=== PATIENT | female | born 1955 | race Caucasian/White ===

== ENCOUNTER 2019-11-28 08:51 | Outpatient (CLI) | payer MEDICARE, SELFPAY ==
--- NOTE | ~2019-11-28 | MM_ITS ---
EXAMINATION: MM screening roberto carlos BI w arun HISTORY: Screening mammogram TECHNIQUE: Craniocaudal and mediolateral oblique 3-D tomosynthesis images were obtained and synthetic 2-D images were generated. CAD analysis was submitted and interpreted. COMPARISON: 11/25/2018, 11/16/2017, 11/13/2016 bilateral digital screening mammogram examinations BREAST PARENCHYMAL COMPOSITION: The breasts are heterogeneously dense, which may obscure small masses . FINDINGS: There is no evidence of suspicious mass, calcification, or architectural distortion to sugg est malignancy in either breast. There has been no suspicious interval change. IMPRESSION: 1. No mammographic evidence of malignancy. 2. Recommend routine screening mammography in one year. BI-RADS Category 1: Negative Reviewed, dictated and finalized at location A.
== END 2019-11-28 08:52 | disposition home or self-care (01) ==
PROVIDERS: PCP Family Medicine; Visit Provider Family Medicine
DX: Z12.31 Encounter for screening mammogram for malignant neoplasm of breast (principal)
CPT/HCPCS: 77063; 77067

== ENCOUNTER → 2020-05-20 10:15 | Outpatient (CLI) | payer MEDICARE, SELFPAY ==
--- NOTE | ~2020-05-20 | US_ITS ---
US retroperitoneal comp 05/20/2020 11:01 Procedure: Realtime transabdominal ultrasound of the kidneys and bladder. Indication: Recurrent UTI with hematuria and proteinuria Comparison: No prior studies for comparison. Findings: Renal echotexture is normal bilaterally without hydronephrosis, contour deforming mass or r enal calculus. The right kidney measures 11 cm and left kidney measures 9 cm. Bladder within normal limits. Impression: 1: Unremarkable renal ultrasound. No stones, masses or hydronephrosis. Reviewed, dictated and finalized at location B. 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 No stones, masses or hydronephrosis.
== END ==
PROVIDERS: PCP Family Medicine; Visit Provider Urology
DX: N39.0 Urinary tract infection, site not specified (principal)
CPT/HCPCS: 76770

== ENCOUNTER → 2020-09-06 01:59 | Outpatient (CLI) | payer MEDICARE, SELFPAY ==
[2020-09-06 17:04] LABS: SARS-CoV-2 RNA PCR Negative
== END ==
PROVIDERS: PCP Family Medicine; Visit Provider Internal Medicine Gastroenterology
DX: Z01.812 Encounter for preprocedural laboratory examination (principal); Z20.822 Contact with and (suspected) exposure to COVID-19
CPT/HCPCS: C9803; U0003; U0005

== ENCOUNTER 2020-09-09 00:10 | Day surgery (SDC) | payer MEDICARE, SELFPAY ==
[2020-08-26 13:46] VITALS: BMI 25.0
[2020-09-09 07:49] VITALS: BP 149/80; PULSE 65; RESP 16; TEMP 36.6; O2SAT 99; BMI 25.9
[2020-09-09] MEDS: LACTATED RINGERS 1,000 ML 150 ML IV CONT (08:03)
--- NOTE | 2020-09-09 08:24 | WPDGICN ---
GI Consult Note Consult date/time: 09/09/20 08:24 HPI: Reason for visit EGD. This very pleasant lady seen in consultation request of the primary physician. Impression: Your very pleasant lady with a history of GERD, duodenal ulcers and esophageal spasm. She is here for endoscopic evaluation to assess for lying erosive esophagitis. She was having breakthrough symptoms. This may be contributing to her chronic cough. Dysphagia. This may be secondary to underlying globus reaction. Will evaluate for underlying ring stricture. Essential tremor. Low bone mass. Rosacea. HLD. recommendation: EGD. History is very pleasant lady has a history of chronic cough. The patient also has a history of reflux disease and esophageal spasm. She has been complaining of increasing reflux despite pantoprazole b.i.d.. She has dysphagia to pills. She feels things get caught in the middle of her throat. She has had a chronic cough. Since placing a wedge in her bed her cough has improved. She is here for endoscopic evaluation to assess for lying erosive esophagitis. Physical examination: General: very pleasant patient in no acute distress. HEENT: Head was normocephalic sclerae is clear mouth without masses neck was supple. Heart: Rate rhythm regular without S3 or S4. Lungs: CTA. Abdomen: Soft with no guarding or rigidity. Bowel sounds were active. Neurologic: Cranial nerves 2 through 12 intact. No focal defects. No clonus. Mild essential tremor Musculoskeletal system: Revealed no joint tenderness or swelling no muscle atrophy. Extremities: Reveal no significant edema. Skin: Warm and dry with normal turgor. Mental status: intact. Patient is alert and oriented. Review of Systems Review of Systems: All systems reviewed & are unremarkable except as noted in HPI and below [facility] Past Medical History Medical History (Updated 06/21/20 @ 11:00 by Monisha Contreras DO) Carcinoma of left lower extremity left leg 03-04-18 Hepatitis C antibody test negative 07/05/16 Hoarseness of voice Mammogram normal 11-13-16 Osteopenia Rosacea Surgical History Surgical History History of esophagogastroduodenoscopy (EGD) 1011 Hx of cardiac catheterization Hx of colonoscopy Hx of ovarian cystectomy Family History Family History Mother Family history of cardiovascular disease Hypertension Cerebrovascular accident Family history of chronic obstructive pulmonary disease Sibling Family history of coronary artery disease Hypertension Acute myocardial infarction Father Family history of elevated blood lipids Family history of lung cancer Family history of Hodgkin's lymphoma Grandparent Family history of kidney disease Family history of malignant neoplasm of breast Other Pancreatic cancer Social History Social History Smoking status: Never smoker Alcohol intake: never Substance use: never Living arrangements: with family Gender identity (if verbalized by the patient): Female Spiritual care concerns: No Meds Home Medications and Allergies Home Medications Medication Instructions Recorded Confirmed Type cholecalciferol (vitamin D3) 50 2,000 unit PO DAILY 02/17/19 09/09/20 History mcg (2,000 unit) tablet cyclosporine 0.05 % eye drops in a 1 drop EACH EYE Q12H 02/17/19 09/09/20 History dropperette calcium carbonate 500 mg calcium 1,200 mg PO DAILY 10/30/19 09/09/20 History (1,250 mg) tablet triamcinolone acetonide 0.1 % 1 applic TOPICAL BID #30 gm 10/30/19 09/09/20 Rx topical cream estradiol 1 g VAGINAL .COMPLEX #42.5 gm 02/19/20 09/09/20 Rx ezetimibe 10 mg-simvastatin 10 mg See Rx Instructions .ROUTE 04/13/20 09/09/20 Rx tablet .COMPLEX #90 tablet famotidine 20 mg tablet 20 mg PO BID tablet 06/07
--- NOTE | 2020-09-09 08:54 | WPDANESEPPF ---
Anes - Initial Pre Proc Eval Procedure: Operation Date: 09/09/20 09:00 Proposed Procedures p Esophagogastroduodenoscopy - Pastor Pittman DO Date/Time: 09/09/20 08:54 Surgeon: Pastor Pittman DO Pre Op Diagnosis: gastro reflux disease Patient Data Age: 65 Gender: F Height: 5 ft 6 in Weight: 72.8 kg Last Vital Signs Temp 97.9 F 09/09/20 07:49 Pulse 65 09/09/20 07:49 Resp 16 09/09/20 07:49 BP 149/80 H 09/09/20 07:49 Pulse Ox 99 09/09/20 07:49 Allergies Allergy/AdvReac Type Severity Reaction Status Date / Time Iodinated Contrast Media Allergy Unknown Skin Verified 09/09/20 07:48 Reaction Sulfa (Sulfonamide Allergy Unknown Nausea Verified 09/09/20 07:48 Antibiotics) cefaclor AdvReac Unknown Nausea Verified 09/09/20 07:48 Cephalosporins AdvReac Unknown nausea Verified 09/09/20 07:48 erythromycin base AdvReac Unknown chemical Verified 09/09/20 07:48 burn from ophthalmic ointment ibuprofen AdvReac Unknown Ulcers Verified 09/09/20 07:48 tobramycin AdvReac Unknown Nausea Verified 09/09/20 07:48 ERYTHROMYCIN EYE DROPS Allergy Mild Other Uncoded 09/09/20 07:48 Contrast Media Allergy Unknown SWELLING Uncoded 09/09/20 07:48 OF THROAT Home Medications Medication Instructions Recorded Confirmed Type cholecalciferol (vitamin D3) 50 2,000 unit PO DAILY 02/17/19 09/09/20 History mcg (2,000 unit) tablet cyclosporine 0.05 % eye drops in a 1 drop EACH EYE Q12H 02/17/19 09/09/20 History dropperette calcium carbonate 500 mg calcium 1,200 mg PO DAILY 10/30/19 09/09/20 History (1,250 mg) tablet triamcinolone acetonide 0.1 % 1 applic TOPICAL BID #30 gm 10/30/19 09/09/20 Rx topical cream estradiol 1 g VAGINAL .COMPLEX #42.5 gm 02/19/20 09/09/20 Rx ezetimibe 10 mg-simvastatin 10 mg See Rx Instructions .ROUTE 04/13/20 09/09/20 Rx tablet .COMPLEX #90 tablet famotidine 20 mg tablet 20 mg PO BID tablet 06/21/20 09/09/20 History pantoprazole 40 mg tablet,delayed 40 mg PO BID 06/21/20 09/09/20 History release propranolol 10 mg tablet 10 mg PO .COMPLEX #180 tablet 07/05/20 09/09/20 Rx valacyclovir 2,000 mg PO Q12H PRN 08/26/20 09/09/20 History Patient hx anesthesia problems: none Family hx anesthesia problems: none PMFSH Past Medical History Medical History (Updated 06/21/20 @ 11:00 by Monisha Contreras DO) Carcinoma of left lower extremity left leg 03-04-18 Hepatitis C antibody test negative 07/05/16 Hoarseness of voice Mammogram normal 11-13-16 Osteopenia Rosacea Surgical History Surgical History History of esophagogastroduodenoscopy (EGD) 01-10-11 Hx of cardiac catheterization Hx of colonoscopy Hx of ovarian cystectomy Family History Family History Mother Family history of cardiovascular disease Hypertension Cerebrovascular accident Family history of chronic obstructive pulmonary disease Sibling Family history of coronary artery disease Hypertension Acute myocardial infarction Father Family history of elevated blood lipids Family history of lung cancer Family history of Hodgkin's lymphoma Grandparent Family history of kidney disease Family history of malignant neoplasm of breast Other Pancreatic cancer Social History Social History Smoking status: Never smoker Alcohol intake: never Substance use: never Living arrangements: with family Gender identity (if verbalized by the patient): Female Spiritual care concerns: No Anes - Eval Final PreProcedure Day of Procedure 09/09/20 08:54 Patient weight: normal Heart: regular rate and rhythm Lungs: clear to auscultation Airway: Mallampati scale class II Neurological: alert and oriented ASA classification: II Emergent: no Anesthetic plan: proceed Anesthesia type and monitoring: general GIVS a
[2020-09-09 09:21] VITALS: BP 118/68; PULSE 73; RESP 18; O2SAT 98
[2020-09-09 09:31] VITALS: BP 123/73; PULSE 72; RESP 21; O2SAT 100
[2020-09-09 09:41] VITALS: BP 136/86; PULSE 67; RESP 19; O2SAT 99
== END 2020-09-09 09:45 | disposition home or self-care (01) ==
PROVIDERS: PCP Family Medicine; Visit Provider Internal Medicine Gastroenterology
PROC: 0DJ08ZZ Inspection of Upper Intestinal Tract, Via Natural or Artificial Opening Endoscopic (ICD-10-PCS; CPT 43235; principal; 2020-09-09 09:00)
DX: K21.9 Gastro-esophageal reflux disease without esophagitis (principal); K44.9 Diaphragmatic hernia without obstruction or gangrene; K31.7 Polyp of stomach and duodenum; R05 Cough; R13.10 Dysphagia, unspecified; Z87.11 Personal history of peptic ulcer disease; E78.5 Hyperlipidemia, unspecified; G25.0 Essential tremor; M85.80 Other specified disorders of bone density and structure, unspecified site
CPT/HCPCS: 43239; 43450; 87081; 88305; C9803; J2704; J7120; U0003; U0005

== ENCOUNTER → 2020-10-15 08:41 | Outpatient (CLI) | payer MEDICARE, SELFPAY ==
--- NOTE | ~2020-10-15 | XR_ITS ---
XR wrist RT w scaphoid DATE: 10/15/2020 09:09 INDICATION: Right wrist pain TECHNIQUE: 5 views COMPARISON: None FINDINGS: There is prominent osteoarthritic change including joint space narrowing and spurring at th e first carpometacarpal joint. No fracture or dislocation, periosteal reaction or bone destruction. IMPRESSION: Prominent osteoarthritis at the first carpometacarpal joint Reviewed, dictated and finalized at location A.
== END ==
PROVIDERS: PCP Family Medicine; Visit Provider Family Medicine
DX: M19.031 Primary osteoarthritis, right wrist (principal)
CPT/HCPCS: 73110

== ENCOUNTER 2020-11-29 08:20 | Outpatient (CLI) | payer MEDICARE, SELFPAY ==
--- NOTE | ~2020-11-29 | MM_ITS ---
EXAMINATION: MM screening [facility] BI w arun HISTORY: Screening mammogram TECHNIQUE: Craniocaudal and mediolateral oblique 3-D tomosynthesis images were obtained and synthetic 2-D images were generated. CAD analysis was submitted and interpreted. COMPARISON: 11/28/2019, 11/25/2018 H 1018 BREAST PARENCHYMAL COMPOSITION: The breasts are heterogeneously dense, which may obscure small masses . FINDINGS: There is no evidence of suspicious mass, calcification, or architectural distortion to sugg est malignancy in either breast. There has been no suspicious interval change. IMPRESSION: 1. No mammographic evidence of malignancy. 2. Recommend routine screening mammography in one year. BI-RADS Category 1: Negative Reviewed, dictated and finalized at location A.
== END 2020-11-29 08:21 | disposition home or self-care (01) ==
LOC: ANHIMG 08:22
PROVIDERS: PCP Family Medicine; Visit Provider Family Medicine
DX: Z12.31 Encounter for screening mammogram for malignant neoplasm of breast (principal)
CPT/HCPCS: 77063; 77067

== ENCOUNTER → 2021-06-24 14:27 | Outpatient (CLI) | payer MEDICARE, SELFPAY ==
--- NOTE | ~2021-06-24 | XR_ITS ---
XR shoulder LT min 2V, XR humerus LT 06/24/2021 15:45 Indication: Left shoulder and arm pain Procedure: 4 views left shoulder and 2 views left humerus Comparison: No prior studies for comparison. Findings: There is anatomic alignment. No fracture, subluxation or dislocation. No significant soft t issue abnormality. No foreign bodies. Impression: 1: No acute bone or joint abnormality. Reviewed, dictated and finalized at location B. Impression: 1: No acute bone or joint abnormality. Impression: 1: No acute bone or joint abnormality.
== END ==
PROVIDERS: PCP Family Medicine; Visit Provider Family Medicine
DX: M79.602 Pain in left arm (principal); M25.619 Stiffness of unspecified shoulder, not elsewhere classified
CPT/HCPCS: 73030; 73060

== ENCOUNTER → 2021-07-13 10:13 | Outpatient (CLI) | payer MEDICARE, SELFPAY ==
--- NOTE | ~2021-07-13 | XR_ITS ---
EXAMINATION: XR chest 2V DATE: 07/13/2021 10:39 INDICATION: Cough TECHNIQUE: PA and lateral views of the chest were obtained. COMPARISON: Chest radiograph dated 09/12/2016 FINDINGS: The lungs remain clear with no focal airspace opacities, pulmonary edema, pleural effusion or pneumot horax. The cardiomediastinal silhouette is normal. Mild thoracic dextrocurvature with mild spondylosi s. IMPRESSION: 1. No acute cardiopulmonary disease. Reviewed, dictated and finalized at location B.
== END ==
PROVIDERS: PCP Family Medicine; Visit Provider Family Medicine
DX: R05.9 Cough, unspecified (principal); M47.814 Spondylosis without myelopathy or radiculopathy, thoracic region
CPT/HCPCS: 71046

== ENCOUNTER 2021-08-09 17:14 | Outpatient (CLI) | payer MEDICARE, SELFPAY ==
--- NOTE | ~2021-08-09 | DEXA_ITS ---
Bone Density Report Name: UZIEL AN Age: 66 Sex: Female Ethnicity: White Date of : 1955 Indication: osteopenia; height loss; prior fracture;post menopausal Referring Provider: KELSI HALEY Study: Bone densitometry was performed. Exam Date: August 09, 2021 Accession number: [id number] Bone Density: Region BMD T-score Z-score Classification AP Spine(L1-L4) 0.802 -2.2 -0.2 Osteopenia Femoral Neck (Left) 0.634 -1.9 -0.2 Osteopenia Total Hip (Left) 0.768 -1.4 0.0 Osteopenia Femoral Neck (Right) 0.656 -1.7 0.0 Osteopenia Total Hip (Right) 0.784 -1.3 0.1 Osteopenia Total Hip Mean 0.776 -1.4 0.1 Osteopenia World Health Organization criteria for BMD impression classify patients as: Normal (T-score at or above -1.0), Osteopenia (T-score between -1.0 and -2.5), or Osteoporosis (T-score at or below -2.5). 10-year Fracture Risk(1): Major Osteoporotic Fracture 18% Hip Fracture 3.0% Reported Risk Factors: [place] (), Neck BMD=0.634, BMI=26.6, previous fracture (1) FRAX(R) Version 3.08. Fracture probability calculated for an untreated patient. Fracture probability may be lower if the patient has received treatment. Previous Exams: Region Exam Age BMD T-score BMD Change BMD Change Date g/cm2 vs Baseline vs Previous AP Spine (L1-L4) 08/09/2021 66 0.802 -2.2 0.003 (0.4%) 0.015 (1.9%) 11/16/2017 62 0.787 -2.4 -0.012 (-1.5%) -0.012 (-1.5%) 11/05/2014 59 0.799 -2.3 Total Hip(Left) 08/09/2021 66 0.768 -1.4 -0.011 (-1.4%) 0.014 (1.8%) 11/16/2017 62 0.755 -1.5 -0.025 (-3.2%) -0.025 (-3.2%) 11/05/2014 59 0.779 -1.3 Total Hip(Right) 08/09/2021 66 0.784 -1.3 0.020 (2.7%) 0.052 (7.1%)* 11/16/2017 62 0.732 -1.7 -0.031 (-4.1%) -0.031 (-4.1%) 11/05/2014 59 0.763 -1.5 *Denotes significance at 95% confidence level, LSC for AP Spine = 0.022 g/cm2, LSC for Total Hip = 0.027 g/cm2 Clinical Information Provided by Patient: Has had a low trauma fracture Patient maximum height was 66 Menopause Age: 47 No regular weight bearing exercise Drinks caffeinated beverages Onset of menses at age 9 Number of children 0 Impression: The patient has low bone mass, based on the Total Spine T-score. The patient has an estimated ten-year risk of hip fracture of 3% and an estimated ten-year risk of major fracture of 18%, based on the WHO FRAX algorithm. The patient has risk factors, incl
== END 2021-08-09 17:15 | disposition home or self-care (01) ==
PROVIDERS: PCP Family Medicine; Visit Provider Physician Assistant
DX: Z78.0 Asymptomatic menopausal state (principal); M85.88 Other specified disorders of bone density and structure, other site; M85.851 Other specified disorders of bone density and structure, right thigh; M85.852 Other specified disorders of bone density and structure, left thigh
CPT/HCPCS: 77080

== ENCOUNTER → 2021-10-27 08:07 | Outpatient (CLI) | payer MEDICARE, SELFPAY ==
--- NOTE | ~2021-10-27 | US_ITS ---
US abdomen complete DATE: 10/27/2021 08:47 INDICATION: Left upper quadrant pain TECHNIQUE: Real time imaging of the complete abdomen, doppler analysis COMPARISON: None FINDINGS: Pancreatic visualization is limited due to bowel interference. No evidence of gallstones. Negative sonographic Young's sign. The common bile duct measures 4 mm, normal. No hepatic space occupying mass lesion. Normal hepatopedal portal venous flow direction. No renal mass lesion or hydronephrosis. No splenomegaly. IMPRESSION: No significant abnormality ; limited pancreatic visualization due to bowel Reviewed, dictated and finalized at Location A. Reviewed, dictated and finalized at location B. IMPRESSION: No significant abnormality ; limited pancreatic visualization due t o bowel
== END ==
LOC: EXPGOSH 08:09 → EXPGOSHRAD 11-04 14:40
PROVIDERS: PCP Internal Medicine Gastroenterology; Visit Provider Internal Medicine Gastroenterology
DX: R07.89 Other chest pain (principal); K44.9 Diaphragmatic hernia without obstruction or gangrene
CPT/HCPCS: 76700

== ENCOUNTER 2021-12-01 11:08 | Outpatient (CLI) | payer MEDICARE, SELFPAY ==
--- NOTE | ~2021-12-01 | MM_ITS ---
EXAMINATION: MM screening roberto carlos BI w arun HISTORY: Screening TECHNIQUE: Craniocaudal and mediolateral oblique 3-D tomosynthesis images were obtained and synthetic 2-D images were generated. CAD analysis was submitted and interpreted. COMPARISON: Comparison to multiple prior studies sequentially, with oldest reviewed study dated 10/2016. BREAST PARENCHYMAL COMPOSITION: The breasts are heterogeneously dense, which may obscure small masses FINDINGS: There is no evidence of suspicious mass, calcification, or architectural distortion to sugg est malignancy in either breast. There has been no suspicious interval change. IMPRESSION: 1. No mammographic evidence of malignancy. 2. Recommend routine screening mammography in one year. BI-RADS Category 1: Negative Reviewed, dictated and finalized at location A.
== END 2021-12-01 11:09 | disposition home or self-care (01) ==
PROVIDERS: PCP Family Medicine; Visit Provider Family Medicine
DX: Z12.31 Encounter for screening mammogram for malignant neoplasm of breast (principal)
CPT/HCPCS: 77063; 77067

== ENCOUNTER → 2021-12-14 07:39 | Outpatient (CLI) | payer MEDICARE, SELFPAY ==
--- NOTE | ~2021-12-14 | MR_ITS ---
EXAMINATION: MR humerus LT wo con DATE: 12/14/2021 08:23 INDICATION: Left arm pain and limited range of motion TECHNIQUE: Magnetic resonance imaging (MRI) of the left upper arm/humerus was performed without intra venous contrast. A marker was placed over the region of maximal pain. Sequences included axial, sagi ttal and coronal T1-weighted FSE and fluid sensitive FSE STIR. COMPARISON: None. FINDINGS: Bone alignment is normal with normal marrow signal throughout. No reactive edema, fracture or patholo gic marrow replacing process. Minimal acromioclavicular osteoarthritis. Glenohumeral and elbow joints appear normal with physiologic amount of fluid. No muscle atrophy or abnormal muscle signal at the l eft upper arm or visualized shoulder girdle. The marker indicating the site of maximal pain is locate d over the distal humeral insertion of the deltoid which appears normal. No abnormal masses or fluid collections identified. No pathologically enlarged left axillary lymphadenopathy. Mild increased flui d signal posterior to the olecranon and distal triceps tendon consistent with mild olecranon bursitis . IMPRESSION: 1. Mild left olecranon bursitis. Otherwise unremarkable MRI of the left shoulder with no etiology nam ntified for pain centered at the lateral aspect of the mid upper arm. Reviewed, dictated and finalized at location A. IMPRESSION: 1. Mild left olecranon bursitis. Otherwise unremarkable MRI of the left shoulde r with no etiology identified for pain centered at the lateral aspect of the mi d upper arm.
--- NOTE | ~2021-12-14 | CT_ITS ---
EXAMINATION: CT chest abdomen wo con DATE: 12/14/2021 08:37 INDICATION: Left chest pain. Left upper quadrant abdominal pain. TECHNIQUE: Computed tomography (CT) of the chest and abdomen was performed without intravenous contra st. Automated exposure control and iterative reconstruction technique were employed. The dose-length product was 486.83 mGy-cm. COMPARISON: None FINDINGS: CHEST CT: There is mild scarring at the lung apices. There is mild atelectasis bilaterally. There is a 3 mm nod ule in left lower lobe, likely benign. No pleural effusion. The heart size is normal. There are coron juan miguel artery calcifications. No pericardial effusion. There is a small sliding hiatal hernia. There is moderate thoracic spondylosis. ABDOMEN CT: There is a 5 mm cyst in the liver. The gallbladder, spleen, pancreas, adrenal glands, and kidneys are normal. There is no urolithiasis. There are no dilated loops of bowel. There are no pathologically e nlarged lymph nodes. There is no free intraperitoneal fluid. There is moderate lumbar spondylosis. IMPRESSION: 1. Small sliding hiatal hernia. Reviewed, dictated and finalized at location A.
== END ==
PROVIDERS: PCP Family Medicine; Visit Provider Family Medicine
DX: R10.9 Unspecified abdominal pain (principal); K44.9 Diaphragmatic hernia without obstruction or gangrene; M70.22 Olecranon bursitis, left elbow; R07.89 Other chest pain; M47.814 Spondylosis without myelopathy or radiculopathy, thoracic region; I25.10 Atherosclerotic heart disease of native coronary artery without angina pectoris
CPT/HCPCS: 71250; 73218; 74150

== ENCOUNTER 2022-05-16 00:28 | Day surgery (SDC) | payer MEDICARE, SELFPAY ==
[2022-05-02 13:54] VITALS: BMI 25.9
[2022-05-16 08:15] VITALS: BP 134/64; PULSE 59; RESP 16; TEMP 36.1; O2SAT 99; BMI 26.4
[2022-05-16] MEDS: LACTATED RINGERS 1,000 ML 150 ML IV CONT (08:26)
--- NOTE | 2022-05-16 08:32 | WPDANESEPPF ---
Anes - Initial Pre Proc Eval Procedure: Operation Date: 05/16/22 09:30 Proposed Procedures p Esophagogastroduodenoscopy - Willy Rolon MD Date/Time: 05/16/22 08:32 Surgeon: Willy Rolon MD Pre Op Diagnosis: GERD, epigastric pain Patient Data Age: 67 Gender: F Height: 1.68 m Weight: 74.1 kg Last Vital Signs Temp 96.9 F L 05/16/22 08:15 Pulse 59 L 05/16/22 08:15 Resp 16 05/16/22 08:15 BP 134/64 05/16/22 08:15 Pulse Ox 99 05/16/22 08:15 O2 Del Method Room Air 05/16/22 08:15 Allergies Allergy/AdvReac Type Severity Reaction Status Date / Time Iodinated Contrast Media Allergy Unknown Skin Verified 05/16/22 08:14 Reaction Sulfa (Sulfonamide Allergy Unknown Nausea Verified 05/16/22 08:14 Antibiotics) cefaclor AdvReac Unknown Nausea Verified 05/16/22 08:14 Cephalosporins AdvReac Unknown nausea Verified 05/16/22 08:14 erythromycin base AdvReac Unknown chemical Verified 05/16/22 08:14 burn from ophthalmic ointment ibuprofen AdvReac Unknown Ulcers Verified 05/16/22 08:14 tobramycin AdvReac Unknown Nausea Verified 05/16/22 08:14 ERYTHROMYCIN EYE DROPS Allergy Mild Other Uncoded 05/16/22 08:14 Contrast Media Allergy Unknown SWELLING Uncoded 05/16/22 08:14 OF THROAT Home Medications Medication Instructions Recorded Confirmed Type cholecalciferol (vitamin D3) 50 2,000 unit PO DAILY 02/17/19 05/16/22 History mcg (2,000 unit) tablet calcium carbonate 500 mg calcium 1,200 mg PO DAILY 10/30/19 05/16/22 History (1,250 mg) tablet (Calcium 500) estradiol 0.01% (0.1 mg/gram) See Rx Instructions .Route 12/23/21 05/16/22 Rx vaginal cream .COMPLEX #42.5 grams famotidine 20 mg tablet 20 mg PO BID #180 tabs 01/17/22 05/16/22 Rx losartan 25 mg tablet 25 mg PO DAILY #90 tabs 02/08/22 05/16/22 Rx propranolol 10 mg tablet 10 mg PO .COMPLEX #270 tabs 04/06/22 05/16/22 Rx pantoprazole 40 mg tablet,delayed 40 mg PO BID #180 tabs 04/07/22 05/16/22 Rx release cyclosporine 0.05 % eye drops in a 1 drp EACH EYE Q12H 05/02/22 05/16/22 History dropperette (Restasis) ezetimibe 10 mg-simvastatin 10 mg 1 tablet PO QHS 05/02/22 05/16/22 History tablet (Vytorin) pimecrolimus 1 % topical cream 1 applic topical TID 05/02/22 05/16/22 History (Elidel) triamcinolone acetonide 0.025 % 1 applic topical BID PRN Rash 05/02/22 05/16/22 History topical cream valacyclovir 1 gram tablet 2,000 mg PO Q12H PRN Outbreak #4 05/10/22 05/16/22 Rx tabs Patient hx anesthesia problems: none Family hx anesthesia problems: none Results Review: All pre-operative results and documents have been reviewed as part of the pre-operative evaluation. [facility] Past Medical History Medical History Carcinoma of left lower extremity left leg 03-04-18 Gastro-esophageal reflux disease without esophagitis Hepatitis C antibody test negative 07/05/16 History of duodenal ulcer Hoarseness of voice Hypertension Mammogram normal 11-13-16 Non-cardiac chest pain Osteopenia Rosacea Surgical History Surgical History History of esophagogastroduodenoscopy (EGD) 01-10-11 History of tonsillectomy Hx of cardiac catheterization Hx of colonoscopy Hx of ovarian cystectomy Family History Family History Mother Family history of cardiovascular disease Hypertension Cerebrovascular accident Family history of chronic obstructive pulmonary disease Sibling Family history of coronary artery disease Hypertension Acute myocardial infarction Father Family history of elevated blood lipids Family history of lung cancer Family history of Hodgkin's lymphoma Grandparent Family history of kidney disease Family history of malignant neoplasm of breast Other Pancreatic cancer Social History Social Histor
--- NOTE | 2022-05-16 09:04 | PM.HPGS ---
History of Present Illness History of Present Illness Consent: Risks, benefits, and alternatives have been discussed and questions answered. Patient agrees to proceed with procedure. Chief complaint: GERD, epigastric pain Narrative: Zeny Roth is a 67 year old female with more recent gerd despite pantoprazole and famotidine, also intermittent non-cardiac chest pain since 2019 (had unremarkable cardiac evaluation), then EGD by Dr Pittman 2020, only small hiatal hernia with small gastric polyps. Review of Systems Constitutional: Constitutional: Denies headache(s) and Denies weakness Eyes: Eyes: Denies blurry vision ENT: Reports Normal hearing present, Denies headache(s) and Denies neck pain Cardiovascular: Cardiovascular: Denies chest pain and Denies dyspnea Respiratory: Respiratory: Denies dyspnea Gastrointestinal: Gastrointestinal: Reports no additional gastrointestinal complaints Genitourinary: Genitourinary: Denies dysuria Musculoskeletal: Musculoskeletal: Denies neck pain Integumentary/Breasts: Skin/Breast: Denies dry skin Neurologic: Reports Normal hearing present, Denies headache(s) and Denies weakness Psychiatric: Psychiatric: Denies anxiety Endocrine: Endocrine: Denies change in body appearance Hematologic/Lymphatic: Hematologic/Lymphatic: Denies easy bleeding Allergic/Immunologic: Allergic/Immunologic: Denies urticaria PMFSH Past Medical History Medical History Carcinoma of left lower extremity left leg 03-04-18 Gastro-esophageal reflux disease without esophagitis Hepatitis C antibody test negative 07/05/16 History of duodenal ulcer Hoarseness of voice Hypertension Mammogram normal 11-13-16 Non-cardiac chest pain Osteopenia Rosacea Surgical History Surgical History History of esophagogastroduodenoscopy (EGD) 01-10-11 History of tonsillectomy Hx of cardiac catheterization Hx of colonoscopy Hx of ovarian cystectomy Family History Family History Mother Family history of cardiovascular disease Hypertension Cerebrovascular accident Family history of chronic obstructive pulmonary disease Sibling Family history of coronary artery disease Hypertension Acute myocardial infarction Father Family history of elevated blood lipids Family history of lung cancer Family history of Hodgkin's lymphoma Grandparent Family history of kidney disease Family history of malignant neoplasm of breast Other Pancreatic cancer Social History Social History Smoking status: Never smoker Second hand tobacco smoke exposure: No Alcohol intake: never Substance use: never Substance use type: does not use Lack of Transportation: No Lack of Food: Never True Current Housing: I Have Housing Concerned About Future Housing: No Difficulty Paying Gas/Electric Bills: No Difficulty Paying for Meds: No Currently Unemployed: No Education: High School Diploma/GED Difficulty w/ Childcare or Family Care: No Living arrangements: with family Additional living arrangements comments: Occupation/Education: retired Gender identity (if verbalized by the patient): Female Spiritual care concerns: No Meds Home Medications and Allergies Home Medications Medication Instructions Recorded Confirmed Type cholecalciferol (vitamin D3) 50 2,000 unit PO DAILY 02/17/19 05/16/22 History mcg (2,000 unit) tablet calcium carbonate 500 mg calcium 1,200 mg PO DAILY 10/30/19 05/16/22 History (1,250 mg) tablet (Calcium 500) estradiol 0.01% (0.1 mg/gram) See Rx Instructions .Route 12/23/21 05/16/22 Rx vaginal cream .COMPLEX #42.5 grams famotidine 20 mg tablet 20 mg PO BID #180 tabs 01/17/22 05/16/22 Rx losartan 25 mg tablet 25 mg PO DAILY #90 tabs 11/
[2022-05-16 09:12] VITALS: BP 106/54; PULSE 67; RESP 22; O2SAT 100
[2022-05-16 09:22] VITALS: BP 105/56; PULSE 63; RESP 12; O2SAT 98
[2022-05-16 09:32] VITALS: BP 129/67; PULSE 55; RESP 15; O2SAT 100
== END 2022-05-16 09:42 | disposition home or self-care (01) ==
PROVIDERS: PCP Family Medicine; Referring Provider Surgery; Visit Provider Internal Medicine Gastroenterology
PROC: 0DJ08ZZ Inspection of Upper Intestinal Tract, Via Natural or Artificial Opening Endoscopic (ICD-10-PCS; CPT 43235; principal; 2022-05-16 09:30)
DX: K21.9 Gastro-esophageal reflux disease without esophagitis (principal); K44.9 Diaphragmatic hernia without obstruction or gangrene; K31.7 Polyp of stomach and duodenum; I10 Essential (primary) hypertension
CPT/HCPCS: 43239; 88305; J2704; J7120

== ENCOUNTER 2022-05-22 09:00 | Outpatient (RCR) | payer MEDICARE, SELFPAY ==
--- NOTE | 2022-04-20 13:52 | PTOPEVAL1 ---
Assessment and note entered by Jannie Murillo, PT, DPT Evaluation Information Assessment Status Evaluation Diagnosis abnormalities of gait and balance Subjective Information Pt states her balance is really bad. She states she has had 3 really bad falls in last of these in 2020. She states she looses her balance and has to catch herself with furniture or the wall to regain her balance. She reports having tremors but is on medication for this. She reports a history of chronic arthritis. She states she walks 2 miles at the [facility] once a week. Reported Pain Level Pain Score 0: Self Report Assessment PT Clinical Summary Zeny presents to therapy today for her initial evaluation with a diagnosis of gait and mobility abnormalities. Today she demonstrates a DGI of 21/ 24 and a SAMUELS of 55/56 as well as a great gait speed. She has BLE strength that is grossly 4-/5. She also reports low activity levels daily. Skilled physical therapy services are indicated to improve strength, to improve higher level balance skills, to encourage regular activity, and to promote unlimited functional mobility. Plan of Care Interventions Gait Training,Neuro Re-education,Patient/Caregiver Educati,Therapeutic Activities,Therapeutic Exercise PT Services Indicated Yes Treatment Frequency and 1x/wk for 5 wks Duration These treatments will address the objective and functional deficits as defined above. The patient will be advanced safely and appropriately in order for the patient to progress towards his/her prior level of function. Additional exercises will be introduced and as well as a comprehensive home exercise program upon discharge, if needed, ?to ensure carryover of functional gains achieved in the clinic. This treatment plan has been reviewed and agreement upon by the patient.
--- NOTE | 2022-05-03 07:54 | PCPTNOTE ---
Patient called to cancel this date due to weather.
--- NOTE | 2022-05-22 09:47 | PTOPDC ---
Assessment and note entered by Jannie Murillo, PT, DPT Evaluation Information Assessment Status Discharge Diagnosis abnormalities of gait and balance Subjective Information Pt states she is doing the exercises consistently but feels like her balance nor mobility has improved. Reported Pain Level Pain Score 0: Self Report Assessment PT Clinical Summary Zeny Luo presents to therapy today for her progress report following 5 visits of skilled therapy to treat her gait abnormalities. Today she demonstrates minor strength improvements with resistance testing, ambulates at a good gait speed , and continues to score high on the SAMUELS and DGI balance assessments. Pt has been instructed in a HEP and reports good compliance with this. She no longer requires skilled therapy services and will be discharged at this time. Plan of Care PT Services Indicated No Treatment Frequency and to be discharged Duration
== END 2022-05-22 13:47 | disposition home or self-care (01) ==
LOC: ANHGOSHPT 09:00
PROVIDERS: PCP Family Medicine; Visit Provider Nurse Practitioner
DX: R26.89 Other abnormalities of gait and mobility (principal)
CPT/HCPCS: 97110; 97112; 97161; 97530

== ENCOUNTER → 2022-06-06 07:05 | Outpatient (CLI) | payer MEDICARE, SELFPAY ==
--- NOTE | ~2022-06-06 | XR_ITS ---
EXAMINATION: XR sacrum coccyx min 2V DATE: 06/06/2022 07:46 INDICATION: Sacrococcygeal disorders, not elsewhere classified. Pain for 4 months. TECHNIQUE: 3 views of the sacrum and coccyx were obtained. COMPARISON: CT 12/14/2021 FINDINGS: There is lumbar levocurvature and mild spondylosis. There is a possible nondisplaced transv erse fracture of the inferior sacrum. There is mild osteoarthritis of the sacroiliac joints. IMPRESSION: 1. Possible nondisplaced transverse fracture of the inferior sacrum. Reviewed, dictated and finalized at location A. ET CUTTER
--- NOTE | ~2022-06-06 | XR_ITS ---
XR lumbar spine min 4V 06/06/2022 07:46 Indication: Low back pain Procedure: 5 views lumbar spine Comparison: 05/27/2012 Findings: There is disc narrowing at L2-3 through L4-5. There is facet hypertrophy at L4-5 and L5-S1. No fracture, subluxation or spondylolisthesis. Normal lumbar lordosis. Mild levoscoliosis centered a t L2. Impression: 1: Mild lumbar spondylosis. Reviewed, dictated and finalized at location D. [employer] Impression: 1: Mild lumbar spondylosis.
== END ==
PROVIDERS: PCP Family Medicine; Visit Provider Family Medicine
DX: M54.50 Low back pain, unspecified (principal); M47.816 Spondylosis without myelopathy or radiculopathy, lumbar region; R93.7 Abnormal findings on diagnostic imaging of other parts of musculoskeletal system; M53.3 Sacrococcygeal disorders, not elsewhere classified
CPT/HCPCS: 72110; 72220

== ENCOUNTER → 2022-07-19 13:08 | Outpatient (CLI) | payer MEDICARE, SELFPAY ==
--- NOTE | ~2022-07-19 | MR_ITS ---
EXAMINATION: MR sacrum wo con DATE: 07/19/2022 13:54 INDICATION: Sacral pain. TECHNIQUE: Magnetic resonance imaging (MRI) of the sacrum was performed without intravenous contrast. COMPARISON: Lumbar spine radiographs 06/06/2022, abdomen CT 12/14/2021 FINDINGS: There is lumbar levocurvature and mild spondylosis. There are Tarlov cysts in the sacrum. No fracture . There is mild osteoarthritis of the sacroiliac joints. IMPRESSION: 1. No fracture. 2. Mild osteoarthritis of the sacroiliac joints. No evidence of inflammatory arthropathy. Reviewed, dictated and finalized at location A. IMPRESSION: 1. No fracture. 2. Mild osteoarthritis of the sacroiliac joints. No evidence of inflammatory ar thropathy.
== END ==
PROVIDERS: PCP Family Medicine; Visit Provider Family Medicine
DX: M53.3 Sacrococcygeal disorders, not elsewhere classified (principal); M47.898 Other spondylosis, sacral and sacrococcygeal region
CPT/HCPCS: 72195

== ENCOUNTER → 2022-08-15 08:53 | Outpatient (CLI) | payer MEDICARE, SELFPAY ==
--- NOTE | ~2022-08-15 | CT_ITS ---
EXAMINATION: CT sinus wo con DATE: 08/15/2022 09:24 INDICATION: Chronic sinusitis TECHNIQUE: Computed tomography (CT) of the paranasal sinuses was performed without intravenous contra st. The dose-length product was 387.90 mGy-cm. Automated exposure control and iterative reconstructio n technique were employed. COMPARISON: CT dated 02/01/2017 FINDINGS: There is minimal mucosal thickening of the right sphenoid sinus. No significant nasal septal deviation. Ostiomeatal units are patent. There is a right-sided manisha bu llosa. No air-fluid level. No mucoperiosteal reaction. Mastoids are pneumatized. IMPRESSION: 1. Mild right sphenoid sinus disease. Reviewed, dictated and finalized at location L.
== END ==
PROVIDERS: PCP Family Medicine; Visit Provider Otolaryngology
DX: J32.3 Chronic sphenoidal sinusitis (principal)
CPT/HCPCS: 70486

== ENCOUNTER 2022-12-04 08:41 | Outpatient (CLI) | payer MEDICARE, SELFPAY ==
--- NOTE | ~2022-12-04 | MM_ITS ---
EXAMINATION: MM screening roberto carlos BI w arun HISTORY: Screening mammogram TECHNIQUE: Craniocaudal and mediolateral oblique 3-D tomosynthesis images were obtained and synthetic 2-D images were generated. CAD analysis was submitted and interpreted. COMPARISON: 12/01 2021, 11/29/2020, 11/28/2019 bilateral screening mammogram examinations BREAST PARENCHYMAL COMPOSITION: FINDINGS: There is no evidence of suspicious mass, calcification, or architectural distortion to sugg est malignancy in either breast. There has been no suspicious interval change. IMPRESSION: 1. No mammographic evidence of malignancy. 2. Recommend routine screening mammography in one year. BI-RADS Category 1: Negative Reviewed, dictated and finalized at location B.
== END 2022-12-04 08:42 | disposition home or self-care (01) ==
LOC: ANHIMG 08:43
PROVIDERS: PCP Family Medicine; Visit Provider Family Medicine
DX: Z12.31 Encounter for screening mammogram for malignant neoplasm of breast (principal)
CPT/HCPCS: 77063; 77067

== ENCOUNTER → 2022-12-12 13:01 | Outpatient (CLI) | payer MEDICARE, SELFPAY ==
--- NOTE | ~2022-12-12 | CT_ITS ---
EXAMINATION: CT chest high resolution wo ut DATE: 12/12/2022 13:26 INDICATION: Solitary pulmonary nodule TECHNIQUE: Computed tomography (CT) of the chest was performed without intravenous contrast. The dose -length product (DLP) was 186.97 mGy-cm. Automated exposure control and iterative reconstruction tech nique were employed. COMPARISON: 12/14/2021 FINDINGS: The lungs are free of focal airspace opacities. There is mild dependent atelectasis. A stab le 3 mm nodule of the left lower lobe is consistent with old granulomatous disease. No pleural effusi on or pneumothorax. No pathologically enlarged thoracic lymph nodes are identified. The heart size is normal. Calcified coronary artery atherosclerosis is noted. There is moderate thoracic spondylosis. IMPRESSION: 1. 3 mm nodule of the left lower lobe, consistent with old granulomatous disease. Reviewed, dictated and finalized at location B. IMPRESSION: 1. 3 mm nodule of the left lower lobe, consistent with old granulomatous diseas e.
== END ==
PROVIDERS: PCP Family Medicine; Visit Provider Family Medicine
DX: R91.1 Solitary pulmonary nodule (principal); K76.89 Other specified diseases of liver
CPT/HCPCS: 71250

== ENCOUNTER 2023-08-20 12:01 | Outpatient (CLI) | payer MEDICARE, SELFPAY ==
--- NOTE | ~2023-08-20 | MMUS_ITS ---
EXAMINATION: MM diagnostic roberto carlos LT w arun, US breast LT complete HISTORY: Generalized left breast and left axillary pain for 6 months TECHNIQUE: ML, MLO and CC 3-D tomosynthesis images of the left breast were performed and synthetic 2- D images were generated. CAD analysis was submitted and interpreted. High resolution complete left br east ultrasound examination including all 4 quadrants and subareolar area and left axillary breast ul trasound examination was performed. COMPARISON: 12/04/2022, 12/01/2021 bilateral screening mammogram examinations BREAST PARENCHYMAL COMPOSITION: The breasts are heterogeneously dense, which may obscure small masses . FINDINGS: MAMMOGRAPHIC FINDINGS: No suspicious mass or architectural distortion, malignant calcification, skin thickening or retractio n or significant new or developing density is detected. ULTRASOUND: No suspicious mass or shadowing, cyst or other sonogram sonographic finding is noted in the left stuart st. There is a normal appearing proximal C7 by 25 mm lymph node in the left axilla, with relatively unifo rm echogenicity, with no abnormal mass or shadowing. IMPRESSION: 1. No evidence of malignancy 2. Routine annual mammographic screening is recommended BI-RADS Category 1: Negative Reviewed, dictated and finalized at location A. IMPRESSION: 1. No evidence of malignancy 2. Routine annual mammographic screening is recommended BI-RADS Category 1: Negative
== END 2023-08-20 12:02 | disposition home or self-care (01) ==
PROVIDERS: PCP Family Medicine; Visit Provider Family Medicine
DX: N64.4 Mastodynia (principal)
CPT/HCPCS: 76641; 77061; 77065; G0279

== ENCOUNTER 2023-10-26 07:02 | Outpatient (CLI) | payer MEDICARE, SELFPAY ==
--- NOTE | ~2023-10-26 | MR_ITS ---
MRI of the lumbar spine Clinical History: Radiculopathy Technique: Axial T2-weighted images, and sagittal T1-weighted, T2-weighted, and T2 fat-sat images wer e acquired. Findings: There is no fracture or sublocation of the lumbar spine. Vertebral bodies maintain normal h eight and alignment. No suspicious bone marrow signal reality seen. At L1-L2, there is no significant disc bulge or herniation. There is mild facet arthropathy. No centr al canal stenosis or neural foraminal narrowing. At L2-L3, there is minimal disc bulge and moderate to advanced facet arthropathy. No central canal st enosis or neural foraminal narrowing. At L3-L4, there is minimal disc bulge with advanced facet arthropathy. No central canal stenosis or n eural foraminal narrowing. At L4-L5, there is diffuse disc bulge and severe facet arthropathy. No lexie central canal stenosis. There is mild to moderate bilateral neural foraminal narrowing. At L5-S1, there is diffuse disc bulge with severe facet arthropathy. No central canal stenosis. There is moderate bilateral neural foraminal narrowing. Paravertebral soft tissues are unremarkable. Impression: Degenerative spondylosis at L4-L5 and L5-S1, with moderate bilateral neural foraminal narrowing at th dawna levels. Additional mild degenerative changes, as above. Reviewed, dictated and finalized at [facility]. Impression: Degenerative spondylosis at L4-L5 and L5-S1, with moderate bilateral neural for aminal narrowing at these levels. Additional mild degenerative changes, as above.
== END 2023-10-26 07:03 ==
PROVIDERS: PCP Family Medicine; Visit Provider Nurse Practitioner Family
DX: M47.896 Other spondylosis, lumbar region (principal)
CPT/HCPCS: 72148

== ENCOUNTER 2023-11-12 09:53 | Outpatient (CLI) | payer MEDICARE, SELFPAY ==
[2023-11-12 11:57] LABS: Troponin I < 0.012 ng/mL (0.000-0.034)
== END 2023-11-12 09:54 | disposition home or self-care (01) ==
LOC: ANHGOSHLAB 09:54
PROVIDERS: PCP Family Medicine; Visit Provider Nurse Practitioner
DX: R07.9 Chest pain, unspecified (principal)
CPT/HCPCS: 36415; 84484; 85380

== ENCOUNTER 2023-11-19 07:40 | Outpatient (NON) | payer MEDICARE, SELFPAY | END 2023-11-19 07:41 | disposition home or self-care (01) | PROVIDERS: PCP Family Medicine; Visit Provider Internal Medicine Gastroenterology | DX: K21.9 Gastro-esophageal reflux disease without esophagitis (principal) | CPT/HCPCS: 88305 ==

== ENCOUNTER 2023-11-19 09:29 | Day surgery (SDC) | payer MEDICARE, SELFPAY ==
[2023-10-23 15:16] VITALS: BMI 27.7
[2023-11-02 08:47] VITALS: BMI 26.6
--- NOTE | 2023-11-18 15:11 | PM.HPGS ---
History of Present Illness History of Present Illness Consent: Risks, benefits, and alternatives have been discussed and questions answered. Patient agrees to proceed with procedure. Chief complaint: Dysphagia, Reflux without Esophagitis. Screening Narrative: Zeny Roth is a 68 year old female with chronic GERD and recent dysphagia, Currently on Dexilant 60 mg in the middle of the day and pepcid 20 mg BID and GERD symptoms are well controlled. She does report dysphagia over the last several months; it has been slowly been worsening and states that she has difficulties swallowing pills in applesauce. She states today she is having trouble swallowing her saliva and has a globus sensation. .She is also due for coon cancer screening. Review of Systems Review of Systems: All systems reviewed & are unremarkable except as noted in HPI and below PMFSH Past Medical History Medical History Carcinoma of left lower extremity left leg 03-04-18 Colon cancer screening Gastro-esophageal reflux disease without esophagitis Hepatitis C antibody test negative 07/05/16 History of duodenal ulcer Hoarseness of voice Hypertension Mammogram normal 11-13-16 Non-cardiac chest pain Osteopenia Rosacea Visceral hypersensitivity syndrome Surgical History Surgical History History of esophagogastroduodenoscopy (EGD) 01-10-11 History of tonsillectomy Hx of cardiac catheterization Hx of colonoscopy Hx of ovarian cystectomy Family History Family History Mother Family history of cardiovascular disease Hypertension Cerebrovascular accident Family history of chronic obstructive pulmonary disease Sibling Family history of coronary artery disease Hypertension Acute myocardial infarction Father Family history of elevated blood lipids Family history of lung cancer Family history of Hodgkin's lymphoma Grandparent Family history of kidney disease Family history of malignant neoplasm of breast Other Pancreatic cancer Social History Social History Smoking status: Never smoker Second hand tobacco smoke exposure: No Alcohol intake: never Substance use: never Substance use type: does not use Lack of Transportation: No Lack of Food: Never True Current Housing: I Have Housing Concerned About Future Housing: No Difficulty Paying Gas/Electric Bills: No Difficulty Paying for Meds: No Currently Unemployed: No Education: High School Diploma/GED Difficulty w/ Childcare or Family Care: No Living arrangements: with family Additional living arrangements comments: Occupation/Education: retired Gender identity (if verbalized by the patient): Female Spiritual care concerns: No Meds Home Medications and Allergies Home Medications Medication Instructions Recorded Confirmed Type cholecalciferol (vitamin D3) 50 2,000 unit PO DAILY 02/17/19 11/15/23 History mcg (2,000 unit) tablet calcium carbonate (Calcium 500) 1,200 mg PO DAILY 10/30/19 11/15/23 History cyclosporine 0.05 % eye drops in a 1 drp EACH EYE Q12H 05/02/22 11/15/23 History dropperette (Restasis) pimecrolimus 1 % topical cream 1 applic topical TID 05/02/22 11/15/23 History (Elidel) valacyclovir 1 gram tablet 2,000 mg PO Q12H PRN Outbreak #4 05/10/22 11/15/23 Rx tabs fluticasone propionate 50 1 spray intranasal BID 11/16/22 11/15/23 History mcg/actuation nasal spray,suspension (Flonase Allergy Relief) propranolol 10 mg tablet 10 mg PO .COMPLEX 07/23/23 11/19/23 History famotidine 20 mg tablet 20 mg PO BID #180 tabs 08/27/23 11/15/23 Rx ezetimibe 10 mg-simvastatin 10 mg 1 tablet PO QHS #90 tabs 09/18/23 11/15/23 Rx tablet (Vytorin) triamcinolone acetonide 0.025 % 1 applic topical BID PRN Rash #80
[2023-11-19 10:56] VITALS: BP 149/80; PULSE 65; RESP 18; TEMP 36.6; O2SAT 99
--- NOTE | 2023-11-19 11:15 | WPDANESEPPF ---
Anes - Initial Pre Proc Eval Procedure: Operation Date: 11/19/23 12:00 Proposed Procedures p Esophagogastroduodenoscopy - Wero Jim MD s Colonoscopy - Wero Jim MD Date/Time: 11/19/23 11:15 Surgeon: Wero Jim MD Pre Op Diagnosis: Dysphagia, Reflux without Esophagitis. Screening Patient Data Age: 68 Gender: F Height: 1.68 m Weight: 73.1 kg Last Vital Signs Temp 36.6 C 11/19/23 10:56 Pulse 65 11/19/23 10:56 Resp 18 11/19/23 10:56 BP 149/80 H 11/19/23 10:56 Pulse Ox 99 11/19/23 10:56 O2 Del Method Room Air 11/19/23 10:56 Allergies Allergy/AdvReac Type Severity Reaction Status Date / Time Iodinated Contrast Media Allergy Unknown Skin Verified 11/19/23 10:53 Reaction Sulfa (Sulfonamide Allergy Unknown Nausea Verified 11/19/23 10:53 Antibiotics) cefaclor AdvReac Unknown Nausea Verified 11/19/23 10:53 Cephalosporins AdvReac Unknown nausea Verified 11/19/23 10:53 erythromycin base AdvReac Unknown chemical Verified 11/19/23 10:53 burn from ophthalmic ointment ibuprofen AdvReac Unknown Ulcers Verified 11/19/23 10:53 tobramycin AdvReac Unknown Nausea Verified 11/19/23 10:53 methylprednisolone AdvReac Hypertensio Verified 11/19/23 11:01 [From Medrol] n Home Medications Medication Instructions Recorded Confirmed Type cholecalciferol (vitamin D3) 50 2,000 unit PO DAILY 02/17/19 11/15/23 History mcg (2,000 unit) tablet calcium carbonate (Calcium 500) 1,200 mg PO DAILY 10/30/19 11/15/23 History cyclosporine 0.05 % eye drops in a 1 drp EACH EYE Q12H 05/02/22 11/15/23 History dropperette (Restasis) pimecrolimus 1 % topical cream 1 applic topical TID 05/02/22 11/15/23 History (Elidel) valacyclovir 1 gram tablet 2,000 mg PO Q12H PRN Outbreak #4 05/10/22 11/15/23 Rx tabs fluticasone propionate 50 1 spray intranasal BID 11/16/22 11/15/23 History mcg/actuation nasal spray,suspension (Flonase Allergy Relief) propranolol 10 mg tablet 10 mg PO .COMPLEX 07/23/23 11/19/23 History famotidine 20 mg tablet 20 mg PO BID #180 tabs 08/27/23 11/15/23 Rx ezetimibe 10 mg-simvastatin 10 mg 1 tablet PO QHS #90 tabs 09/18/23 11/15/23 Rx tablet (Vytorin) triamcinolone acetonide 0.025 % 1 applic topical BID PRN Rash #80 10/30/23 11/15/23 Rx topical cream grams dexlansoprazole 60 mg 60 mg PO DAILY 11/02/23 11/15/23 History capsule,biphase delayed release losartan 25 mg tablet 50 mg PO DAILY #90 tabs 11/08/23 11/15/23 Rx amlodipine 5 mg tablet 5 mg PO DAILY #30 tabs 11/12/23 11/19/23 Rx Patient hx anesthesia problems: none Family hx anesthesia problems: none Results Review: All pre-operative results and documents have been reviewed as part of the pre-operative evaluation. [facility] Past Medical History Medical History Carcinoma of left lower extremity left leg 03-04-18 Colon cancer screening Gastro-esophageal reflux disease without esophagitis Hepatitis C antibody test negative 07/05/16 History of duodenal ulcer Hoarseness of voice Hypertension Mammogram normal 11-13-16 Non-cardiac chest pain Osteopenia Rosacea Visceral hypersensitivity syndrome Surgical History Surgical History History of esophagogastroduodenoscopy (EGD) 01-10-11 History of tonsillectomy Hx of cardiac catheterization Hx of colonoscopy Hx of ovarian cystectomy Family History Family History Mother Family history of cardiovascular disease Hypertension Cerebrovascular accident Family history of chronic obstructive pulmonary disease Sibling Family history of coronary artery disease Hypertension Acute myocardial infarction Father Family history of elevated blood lipids Family history of lung cancer Family history of Hodgkin's lymphoma Grandparent Family history of kidney disease
[2023-11-19] MEDS: LACTATED RINGERS 1,000 ML 150 ML IV CONT (11:18)
[2023-11-19 11:46] VITALS: BP 132/71; PULSE 65; RESP 15; O2SAT 100
--- NOTE | 2023-11-19 11:54 | WPDANESPN ---
Anes - Prog Note Post-Op Date/Time: 11/19/23 11:54 Cardiovascular status: normal Respiratory status: normal Airway patency: baseline Mental status: baseline Post-Op hydration status: normal Vital Signs: Last Vital Signs Temp 36.6 C 11/19/23 10:56 Pulse 65 11/19/23 11:49 Resp 15 11/19/23 11:49 BP 132/71 11/19/23 11:49 Pulse Ox 100 11/19/23 11:49 O2 Del Method Room Air 11/19/23 11:49 Pain Score (VAS): 0/10 I/O: Intake & Output 11/18/23 11/19/23 11/19/23 23:59 07:59 15:59 Intake Total 300 Balance 300 Patient Feedback: Patient satisfied with anesthetic care.
[2023-11-19 11:56] VITALS: BP 125/68; PULSE 64; RESP 16; O2SAT 100
[2023-11-19 12:06] VITALS: BP 129/68; PULSE 58; RESP 16; O2SAT 99
== END 2023-11-19 12:17 | disposition home or self-care (01) ==
PROVIDERS: PCP Family Medicine; Visit Provider Internal Medicine Gastroenterology
PROC: 0DJ08ZZ Inspection of Upper Intestinal Tract, Via Natural or Artificial Opening Endoscopic (ICD-10-PCS; CPT 43235; principal; 2023-11-19 12:00)
PROC: 0DJD8ZZ Inspection of Lower Intestinal Tract, Via Natural or Artificial Opening Endoscopic (ICD-10-PCS; CPT 45378; 2023-11-19 12:00)
DX: Z12.11 Encounter for screening for malignant neoplasm of colon (principal); K21.9 Gastro-esophageal reflux disease without esophagitis; R13.19 Other dysphagia; K57.30 Diverticulosis of large intestine without perforation or abscess without bleeding; K64.8 Other hemorrhoids; K44.9 Diaphragmatic hernia without obstruction or gangrene
CPT/HCPCS: 45378; 43450; 43239

== ENCOUNTER 2023-12-29 10:13 | Outpatient (CLI) | payer MEDICARE, SELFPAY ==
--- NOTE | ~2023-12-29 | DEXA_ITS ---
Bone Density Report Name: UZIEL AN Age: 68 Sex: Female Ethnicity: White Date of : 1955 Indication: osteopenia; monitoring treatment; height loss; Referring Provider: SIRENA ALVAREZ Study: Bone densitometry was performed. Exam Date: December 29, 2023 Accession number: [id number] Bone Density: Region BMD T-score Z-score Classification AP Spine(L1-L4) 0.794 -2.3 -0.2 Osteopenia Femoral Neck (Left) 0.611 -2.1 -0.3 Osteopenia Total Hip (Left) 0.762 -1.5 0.1 Osteopenia Femoral Neck (Right) 0.590 -2.3 -0.5 Osteopenia Total Hip (Right) 0.759 -1.5 0.0 Osteopenia Total Hip Mean 0.761 -1.5 0.1 Osteopenia World Health Organization criteria for BMD impression classify patients as: Normal (T-score at or above -1.0), Osteopenia (T-score between -1.0 and -2.5), or Osteoporosis (T-score at or below -2.5). 10-year Fracture Risk: FRAX not reported because: Treated for osteoporosis Previous Exams: Region Exam Age BMD T-score BMD Change BMD Change Date g/cm2 vs Baseline vs Previous AP Spine (L1-L4) 12/29/2023 68 0.794 -2.3 -0.005 (-0.6%) -0.008 (-0.9%) 08/09/2021 66 0.802 -2.2 0.003 (0.4%) 0.015 (1.9%) 11/16/2017 62 0.787 -2.4 -0.012 (-1.5%) -0.012 (-1.5%) 11/05/2014 59 0.799 -2.3 Total Hip(Left) 12/29/2023 68 0.762 -1.5 -0.017 (-2.2%) -0.006 (-0.8%) 08/09/2021 66 0.768 -1.4 -0.011 (-1.4%) 0.014 (1.8%) 11/16/2017 62 0.755 -1.5 -0.025 (-3.2%) -0.025 (-3.2%) 11/05/2014 59 0.779 -1.3 Total Hip(Right) 12/29/2023 68 0.759 -1.5 -0.004 (-0.6%) -0.025 (-3.2%) 08/09/2021 66 0.784 -1.3 0.020 (2.7%) 0.052 (7.1%)* 11/16/2017 62 0.732 -1.7 -0.031 (-4.1%) -0.031 (-4.1%) 11/05/2014 59 0.763 -1.5 *Denotes significance at 95% confidence level, LSC for AP Spine = 0.022 g/cm2, LSC for Total Hip = 0.027 g/cm2 Clinical Information Provided by Patient: Is being treated for osteoporosis Has used the following medications: Fosamax (i.e. alendronate), Vitamin D, Calcium Patient maximum height was 66 Menopause Age: 47 Does not regularly consume dairy products Onset of menses at age 9 Number of children 0 Impression: The patient has low bone mass, based on the Total Spine T-score. No significant bone loss was observed. Discussion: PATIENT UNDER TREATMENT WITH NO SIGNIFICANT BMD LOSS SINCE LAST EXAM. In an untreated patient, BMD typically declines with age. A lack of decline or
--- NOTE | ~2023-12-29 | MM_ITS ---
EXAMINATION: MM screening roberto carlos BI w arun HISTORY: Screening TECHNIQUE: Craniocaudal and mediolateral oblique 3-D tomosynthesis images were obtained and synthetic 2-D images were generated. CAD analysis was submitted and interpreted. COMPARISON: Comparison to multiple prior studies sequentially, with oldest reviewed study dated 11/25. BREAST PARENCHYMAL COMPOSITION: Dense: The breasts are heterogeneously dense, which may obscure small masses FINDINGS: There is no evidence of suspicious mass, calcification, or architectural distortion to sugg est malignancy in either breast. There has been no suspicious interval change. IMPRESSION: 1. No mammographic evidence of malignancy. 2. Recommend routine screening mammography in one year. BI-RADS Category 1: Negative Reviewed, dictated and finalized at location B.
== END 2023-12-29 10:14 | disposition home or self-care (01) ==
LOC: ANHIMG 10:19
PROVIDERS: PCP Family Medicine; Visit Provider Nurse Practitioner
DX: Z12.31 Encounter for screening mammogram for malignant neoplasm of breast (principal); M85.89 Other specified disorders of bone density and structure, multiple sites
CPT/HCPCS: 77063; 77067; 77080

== ENCOUNTER 2024-03-10 10:12 | Outpatient (CLI) | payer MEDICARE, SELFPAY ==
--- NOTE | ~2024-03-10 | US_ITS ---
EXAMINATION: US venous doppler [facility] DATE: 03/10/2024 11:36 INDICATION: Lower limb swelling TECHNIQUE: Grayscale ultrasound images without and with compression and Doppler ultrasound images of the bilateral lower extremity veins were obtained. COMPARISON: None. FINDINGS: The visualized portions of right common femoral vein, profunda (deep) femoral vein, femoral vein, pop liteal vein, posterior tibial veins, peroneal veins, gastrocnemius vein and greater saphenous vein ou tflow are patent. The visualized portions of left common femoral vein, profunda femoral vein, femoral vein, popliteal v ein, posterior tibial veins, peroneal veins, gastrocnemius vein and greater saphenous vein outflow ar e patent. IMPRESSION: 1. No deep venous thrombosis in either lower limb. Reviewed, dictated and finalized at location A. 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
== END 2024-03-10 10:13 | disposition home or self-care (01) ==
PROVIDERS: PCP Family Medicine; Visit Provider Family Medicine
DX: M79.89 Other specified soft tissue disorders (principal)
CPT/HCPCS: 93970

== ENCOUNTER 2024-05-26 10:46 | Outpatient (CLI) | payer MEDICARE, SELFPAY ==
[2024-05-26 12:01] LABS: Influenza A QL RT-PCR Negative (Negative); Influenza B QL RT-PCR Negative (Negative); RSV RNA, RT-PCR Negative (Negative); SARS-CoV-2 RNA PCR Positive (Negative)
--- OUTSIDE RECORDS SUMMARY | 2024-05-26 13:51 | XMS_ITS | Encounter Summary ---
Author Organization [facility] Address [address] [place] [address] Care Team Providers Care Paper Sorter And Counter Name Role Phone Angus Felix MD Unavailable [phone] Monisha Contreras DO Primary Care Provider [phone] Encounter Details Date Type Department Care Team (Late st Contact Info) Description 11/16/2020 Lab Requisition [facility] Care DermPath Lab [address] [place] [id number] Augusto Moore MD [address] [address] Social History Tobacco Use Types Packs/Day Years Used Date Smoking Tobacco: Never Assessed Sex and Gender Information Value Date Recorded Sex Assigned at Not on file Gender Identity Not on file Sexual Orientation Not on file documented as of this encounter Plan of Treatment Not on file documented as of this encounter Procedures Procedure Name Priority Date/Time Associated Diagnosis Comments DERMATOPATHOLOGY Routine 11/15/2020 3:33 AM CDT documented in this encounter Results * DERMATOPATHOLOGY (11/15/2020 3:33 AM CDT) Case Report Dermatopathology Report Case: [id number] Authorizing Provider: Augusto Moore MD Collected: 11/15/2020 03:33 AM Ordering Location: [facility] Care DermPath Lab Received: 11/16/2020 05:46 AM Pathologist: Abigail Jang MD Specimen: Skin, left calf 4:34 PM CDT DERMATOPATHOLOGY LABORATORY Final Diagnosis Specimen A. SKIN, left calf: BENIGN VERRUCOUS KERATOSIS, INFLAMED (L82.1) (see microscopic description) 4:34 PM T DERMATOPATHOLOGY LABORATORY Clinical History Lentigo/SK vs BCCA. Path # [id number]. 4:34 PM CDT DERMATOPATHOLOGY LABORATORY Gross Description Specimen A: Received is one formalin filled container labeled with the patient's name and designated left calf. The specimen consists of a shave biopsy measuring [id number]. Jar 0. 4:34 PM CDT DERMATOPATHOLOGY LABORATORY Microscopic Description Specimen A. SKIN, left calf: Sections show hyperkeratosis, papillomatosis, hypergranulosis, and acanthosis. Inflammatory cells are present within the dermis. These histological findings can be seen in a verruca vulgaris or a seborrheic keratosis. Additional deeper sections were obtained and reviewed. 4:34 PM CDT DERMATOPATHOLOGY LABORATORY Disclaimer An external and internal positive and negative controls are appropriate for the histochemical, immunohistochemical and immunofluorescence stain(s) in this case (if any), except where stated explicitly. The performance characteristics of the stain(s) cited in this report were developed and its performance characteristic determined by the Dermatopathology Laboratory at [facility], directed by Dr. Zoë Hassan. These tests need not be, and therefore are not, approved by the [place] Food and Drug Administration. The tests are used for clinical purposes. Billing Codes Specimen Charges Stain Charges 79682 1 4:34 PM CDT DERMATOPATHOLOGY LABORATORY Embedded Images 4:34 PM CDT DERMATOPATHOLOGY LABORATORY Pathology/Cytolo gy TISSUE SPECIMEN FROM SKIN / Unknown 11/15/2020 3:33 AM CDT 11/16/2020 5:46 AM CDT Augusto Moore MD LAB - PATHOLOGY/CYTO LOGY ORDERABLES DERMATOPATHOLOGY LABORATORY [facility] - Department of Dermatology [facility] Medicine [facility] [phone] documented in this encounter Visit Diagnoses Not on filedocumented in this encounter Care Teams Paper Sorter And Counter Relationship Specialty Start Date End Date Monisha Contreras DO [address] [place] [address] PCP - General 06/02/22 [place] [id number] [address] Orthopedic Surgery 06/05/17 documented as of this encounter
--- OUTSIDE RECORDS SUMMARY | 2024-05-26 13:51 | XMS_ITS | Encounter Summary ---
Author Organization [facility] Address [address] [place] [address] Phone Care Team Providers Care Process Control Specialist Name Role Phone Freddie Finn MD Primary Care Provider [phone] Pastor Pittman DO Unavailable [phone] Reason for Visit * Reason Comments Medication Refill Encounter Details Date Type Department Care Team (Late st Contact Info) Description 10/07/2021 Refill [facility] - Gastroenterology - [place] [address] [place] [phone] Candelaria Olivier Heidi, [facility] [address] [place] [address] Medication Refill Social History Tobacco Use Types Packs/Day Years Used Date Smoking Tobacco: Never Smokeless Tobacco: Never Alcohol Use Standard Drinks/Week Comments Never 0 (1 standard drink = 0.6 oz pur e alcohol) AUDIT-C Answer Date Recorded Frequency of Alcohol Consumption Not on file 07/22/2019 Average Number of Drinks Not on file 020 Q3: How often do you have si x or more drinks on one occasion? Never 07/22/2019 Sexually Active Control Partners Comments Yes Comments No Sex and Gender Information Value Date Recorded Sex Assigned at Not on file Legal Sex Female 8:38 AM CDT Gender Identity Not on file Sexual Orientation Not on file documented as of this encounter Miscellaneous Notes * Telephone Encounter - Irma Guerin - 10/13/2021 1:29 PM CDT Pt made aware, no questions at this time. * Telephone Encounter - Irma Guerin - 10/12/2021 9:05 AM CDT Left message for pt to call back. * Telephone Encounter - Candelaria Olivier PAC - 10/11/2021 10:01 AM CDT This prescription was renewed for 90 days-all further refills from primary care or she may use [id number] famotidine. * Telephone Encounter - Sybil Murcia RN - 10/07/2021 3:49 PM CDT Pharmacy requesting refill of: Requested Prescriptions Pending Prescriptions Disp Refills ??? famotidine (PEPCID) 20 MG Tablet [Pharmacy Med Name: FAMOTIDINE 20 MG TABLET] 180 Tablet 1 Sig: TAKE 1 TABLET BY MOUTH TWICE A DAY Last fill: 04/15/2021 Patients last OV with GI: 08/03/2020 Next Office Visit with GI: None scheduled Famotidine order pended, please review. documented in this encounter Plan of Treatment Not on file documented as of this encounter Visit Diagnoses Diagnosis Gastroesophageal reflux disease, unspecified whether esophagitis present documented in this encounter Care Teams Process Control Specialist Relationship Specialty Start Date End Date Freddie Finn MD [address] [facility] [address] PCP - General Family Medicine 07/11/16 Pastor Pittman DO [address] [place] [address] Gastroenterology 11/28/16 documented as of this encounter
--- OUTSIDE RECORDS SUMMARY | 2024-05-26 13:51 | XMS_ITS | Encounter Summary ---
Author Organization [facility] Address [address] [place] [address] Phone Care Team Providers Care Spice Cleaner Name Role Phone Freddie Finn MD Primary Care Provider [phone] Pastor Pittman DO Unavailable [phone] Reason for Visit * Reason Comments Medication Refill Encounter Details Date Type Department Care Team (Late st Contact Info) Description 01/18/2021 Refill [facility] - Gastroenterology - [place] [address] [place] [phone] Candelaria Olivier Heidi, [facility] [address] [place] [address] Medication Refill Social History Tobacco Use Types [...] encounter Miscellaneous Notes * Telephone Encounter - Sybil Murcia RN - 01/18/2021 10:14 AM CDT Medication refilled and signed per [facility] chronic medication standing order for pediatric and adult patients. documented in this encounter Plan of Treatment Not on file documented as of this encounter Visit Diagnoses Diagnosis Gastroesophageal reflux disease, unspecified whether esophagitis present documented in this encounter Care Teams Spice Cleaner Relationship Specialty Start Date End Date Freddie Finn MD [address] [place] [address] PCP - General Family Medicine 07/11/16 Pastor Pittman DO [address] [place] [address] Gastroenterology 11/28/16 documented as of this encounter
--- OUTSIDE RECORDS SUMMARY | 2024-05-26 13:51 | XMS_ITS | Patient Health Summary ---
Author Organization [facility] Address [address] [place] [address] Care Team Providers Care Coding Consultant Name Role Phone Angus Felix MD Unavailable Monisha Contreras DO Primary Care Provider [phone] Note from [facility],non-owned Affiliates and Associated Physician Practices is amultiple site organization consisting of ambulatory clinics and hospital sitesin [place], [place], [place] and [place]. This disclosure is being madepursuant to the Care Everywhere program and may not contain all information available regarding this patient. Last updated 17.[facility] Allergies * Cefaclor(Other) * Cephalosporins(Anaphylaxis) -High Criticality * Contrast-Iodinated Agents For Ct/Other(Anaphylaxis,Other,Unknown) -High Criticality * Red Dye(Anaphylaxis) -High Criticality * Erythromycin(Anaphylaxis) -High Criticality * Ibuprofen(Anaphylaxis) -High Criticality * Nsaids(Other) -Low Criticality * Penicillins(Unknown) * Sulfa Drugs(Anaphylaxis,Nausea and/or Vomiting) -High Criticality * Tobramycin(Anaphylaxis) -High Criticality * Codeine(Unknown),Inactive Medications * Be aware that medications may not be up to date on this document. Alwaysverify current medications with the patient. * RESTASIS 0.05 % ophthalmic suspension(Started 06/20/2017) Apply 1 drop to affected area 2 times daily * esomeprazole (NEXIUM) 40 MG capsule(Started 08/02/2017) Take 1 capsule by mouth once daily * ezetimibe-simvastatin (VYTORIN) 10-10 MG tablet(Started 07/11/2017) Take 1 tablet by mouth once daily * propranolol (INDERAL) 10 MG tablet(Started 08/01/2017) Take 1 tablet by mouth once daily 11 refills left * famotidine (PEPCID) 20 MG tablet(Started 10/11/2021) Take 20 mg by mouth 2 times daily * losartan (COZAAR) 25 MG tablet(Started 08/23/2021) Take 25 mg by mouth once daily * estradiol (ESTRACE) 0.1 MG/GM vaginal cream(Started 10/12/2021) APPLY 1 GRAM VAGINALLY AT BEDTIME 1-2 TIMES PER WEEK * CALCIUM CARBONATE-VITAMIN D PO Take 2,000 Int'l Units/mL by mouth * pimecrolimus (ELIDEL) 1 % cream Apply 60 g to affected area 2 times daily * diclofenac sodium (Voltaren) 1 % gel(Started 02/23/2022) Apply 2 (two) g to affected area 3 times daily Reasons: Joint Damage causing Pain and Loss of Function 3 refills by 02/23/2023 Active Problems Problem Noted Date Diagnosed Date Primary osteoarthritis involving multiple joints 10/19/2021 Bilateral hand pain 10/19/2021 Primary osteoarthritis of left knee 06/05/2017 Social History Tobacco Use Types Packs/Day Years Used Date Smoking Tobacco: Never Smokeless Tobacco: Never Tobacco Cessation:Counseling Given: Not Answered Alcohol Use Standard Drinks/Week Comments Never 0 (1 standard drink = 0.6 oz pur e alcohol) Sex and Gender Information Value Date Recorded Sex Assigned at Not on file Gender Identity Not on file Sexual Orientation Not on file Last Filed Vital Signs Vital Sign Reading Time Taken Comments Blood Pressure 124/62 02/23/2022 10:32 AM MACHINE IRONER Pulse 81 02/23/2022 10:32 AM MACHINE IRONER Temperature 36.9 C (98.4 F) 02/23/2022 10:32 AM MACHINE IRONER Respiratory Rate - - Oxygen Saturation 99% 02/23/2022 10:32 AM MACHINE IRONER Inhaled Oxygen Concentration - - Weight 72.8 kg (160 lb 6.4 oz) 02/23/2022 10:32 AM MACHINE IRONER Height 165.1 cm (5' 5 ) 02/23/2022 10:32 AM MACHINE IRONER Body Mass Index 26.69 02/23/2022 10:32 AM MACHINE IRONER Procedures * DERMATOPATHOLOGY(Performed 11/15/2020) * XR KNEE LEFT 3VW(Performed 06/05/2017) Performed for Left knee pain, unspecified chronicity Results * DERMATOPATHOLOGY (11/15/2020 3:33 AM CDT) Case Report Dermatopathology Report Case: [id number] Authorizing Provider: Augusto Moore MD Collected: 11/15/2020 03:33 AM Ordering Location: [facility] DermPath Lab Received: 11/16/2020 05:46 AM Pathologist: Abigail Jang MD Specimen: Skin, left calf 4:34 PM CDT DERMATOPATHOLOGY LABORATORY Final Diagnosis Specimen A. SKIN, left calf: BENIGN VERRUCOUS KERATOSIS, INFLAMED (L82.1) (see microscopic description) 4:34 PM CDT DERMATOPATHOLOGY LABORATORY Clinical History Lentigo/SK vs BCCA. Path # [id number]. 4:34 PM CDT DERMATOPATHOLOGY LABORATORY Gross Description Specimen A: Received is one formalin filled container labeled with the patient's name and designated left calf. The specimen consists of a shave biopsy measuring [id number]. Jar 0. 4:34 PM CDT DERMATOPATHOLOGY LABORATORY [...] characteristic determined by the Dermatopathology Laboratory at [facility], directed by Dr. Zoë Hassan. These tests need not be, and therefore are not, approved by the [place] Food and Drug Administration. The tests are used for clinical purposes. Billing Codes Specimen Charges Stain Charges 68303 1 1 4:34 PM CDT DERMATOPATHOLOGY LABORATORY Embedded Images 1 4:34 PM CDT DERMATOPATHOLOGY LABORATORY Pathology/Cytolo gy TISSUE SPECIMEN FROM SKIN / Unknown 11/15/2020 3:33 AM CDT 11/16/2020 5:46 AM CDT Augusto Moore MD LAB - PATHOLOGY/CYTO LOGY ORDERABLES DERMATOPATHOLOGY LABORATORY [facility] - Department of Dermatology [address] [phone] * XR KNEE 3 VW LEFT (06/05/2017 2:02 PM MACHINE IRONER) Anatomical Region Laterality Modality Lower Extremity Computed Radiogr aphy Narrative 06/05/2017 3:34 PM MACHINE IRONER Safia Willoughby, RT(R) 06/05/2017 3:34 PM See progress notes for results Karina Armando PA-C DIAGNOSTIC IM AGING ORDERABLES Care Teams Coding Consultant Relationship Specialty Start Date End Date Monisha Contreras DO [address] [address] PCP - General 06/02/22 [place] [address] [address] Orthopedic Surgery 06/05/17
--- OUTSIDE RECORDS SUMMARY | 2024-05-26 13:51 | XMS_ITS | Referral Summary ---
Author Organization [facility] Address [address] [place] [address] Care Team Providers Care Washer Assembler Name Role Phone Angus Felix MD Unavailable [phone] Monisha Contreras DO Primary Care Provider [phone] Source Comments [facility],non-owned Affiliates and Associated Physician Practices is amultiple site organization consisting of ambulatory clinics and hospital sitesin [place], [place], [place] and [place]. This disclosure is being madepursuant to the Care Everywhere program and may not contain all information available regarding this patient. Last updated 17.[facility] Allergies Active Allergy Reactions Criticality Noted Date Comments Cefaclor Other 05/15/2019 Abdominal pain Cephalosporins Anaphylaxis High 06/05/2017 Contrast-Iodinated Agents For Ct/Other Anaphylaxis,Other,Un known High 08/07/2018 Patient has taken prednisone and benadryl prior to having contrast and was fine. Hurts stomach Cefalor, Cephalosporin, topramycin, Patient has taken prednisone and benadryl prior to having contrast and was fine. Red Dye Anaphylaxis High 06/05/2017 Erythromycin Anaphylaxis High 06/05/2017 Ibuprofen Anaphylaxis High 06/05/2017 Nsaids Other Low 04/10/2019 Hurts stomach Hurts stomach Penicillins Unknown 12/31/2003 Sulfa Drugs Anaphylaxis,Nausea and/or Vomiting High 12/31/2003 Tobramycin Anaphylaxis High 06/05/2017 Medications * Be aware that medications may not be up to date on this document. Alwaysverify current medications with the patient. Medication Sig Dispensed Refills Start Date End Date Status RESTASIS 0.05 % ophthalmic suspension Apply 1 drop to affected area 2 times daily 06/20/2017 Active esomeprazole (NEXIUM) 40 MG capsule Take 1 capsule by mouth once daily 08/02/2017 Active ezetimibe-simvastatin (VYTORIN) 10-10 MG tablet Take 1 tablet by mouth once daily 07/11/2017 Active propranolol (INDERAL) 10 MG tablet Take 1 tablet by mouth once daily 08/01/2017 Active famotidine (PEPCID) 20 MG tablet Take 20 mg by mouth 2 times daily 10/11/2021 Active losartan (COZAAR) 25 MG tablet Take 25 mg by mouth once daily 08/23/2021 Active estradiol (ESTRACE) 0.1 MG/GM vaginal cream APPLY 1 GRAM VAGINALLY AT BEDTIME 1-2 TIMES PER WEEK 10/12/2021 Active CALCIUM CARBONATE-VITAMIN D PO Take 2,000 Int'l Units/mL by mouth Active pimecrolimus (ELIDEL) 1 % cream Apply 60 g to affected area 2 times daily Active diclofenac sodium (Voltaren) 1 % gelIndications:Osteoa rthritis Apply 2 (two) g to affected area 3 times daily Reasons: Joint Damage causing Pain and Loss of Function 350 g 3 02/23/2022 Active Active Problems Problem Noted Date Diagnosed Date [...] Comments Blood Pressure 124/62 02/23/2022 10:32 AM KEY FILER Pulse 81 02/23/2022 10:32 AM KEY FILER Temperature 36.9 C (98.4 F) 02/23/2022 10:32 AM KEY FILER Respiratory Rate - - Oxygen Saturation 99% 02/23/2022 10:32 AM KEY FILER Inhaled Oxygen Concentration - - Weight 72.8 kg (160 lb 6.4 oz) 02/23/2022 10:32 AM KEY FILER Height 165.1 cm (5' 5 ) 02/23/2022 10:32 AM KEY FILER Body Mass Index 26.69 02/23/2022 10:32 AM KEY FILER Plan of Treatment Not on file Care Teams Washer Assembler Relationship Specialty Start Date End Date Monisha Contreras DO [address] [place] [address] PCP - General 06/02/22 [place] [address] [place] [address] Orthopedic Surgery 06/05/17
--- OUTSIDE RECORDS SUMMARY | 2024-05-26 13:51 | XMS_ITS | Referral Summary ---
Author Organization [facility] [address] Address [address] [place] [address] Care Team Providers Care Smog Technician Name Role Phone Monisha Contreras DO Primary Care Provider [phone] Allergies Active Allergy Reactions Criticality Noted Date Comments Cefaclor Other (See comments) Low 05/15/2019 Abdominal pain Cephalosporins Anaphylaxis,Nausea only,Other (See comments) High 05/29/2007 Abdominal pain Severe abdominal pain Codeine Unknown 11/08/2009 Erythromycin Other (See comments) High 04/10/2019 Eye drops, caused chemical burn to eyes Erythromycin Base Unknown 04/17/2019 Ibuprofen Anaphylaxis,Other (See comments) High 06/05/2017 Abdominal pain Iodinated Contrast Media Unknown,Anaphylaxis, Other (See comments) High 08/07/2018 Patient has taken prednisone and benadryl prior to having contrast and was fine. Patient has taken prednisone and benadryl prior to having contrast and was fine. Hurts stomach Cefalor, Cephalosporin, topramycin, Patient has taken prednisone and benadryl prior to having contrast and was fine. Nsaids (Non-Steroidal Anti-Inflammatory Drug) Other (See comments) Low 04/10/2019 Hurts stomach Hurts stomach Hurts stomach Penicillins Unknown 12/31/2003 Red Dye Anaphylaxis High 06/05/2017 Sulfa (Sulfonamide Antibiotics) Anaphylaxis,Nausea only,Nausea And Vomiting High 12/31/2003 Sulfacetamide Rash Medium 04/10/2019 Tobramycin Anaphylaxis,Edema,Sw elling High 06/29/2008 Tobramycin Sulfate Unknown 06/29/2008 Medications pimecrolimus (ELIDEL) 1 % cream Apply topically every 12 hours Active ezetimibe-simva statin (VYTORIN) 10-10 mg per tablet 9 Active RESTASIS 0.05 % ophthalmic emulsion 9 Active cholecalciferol (VITAMIN D-3) 2,000 unit capsule once a day 8 Active propranolol (INDERAL) 10 mg tablet Take 3 tablets (30 mg total) by mouth 3 (three) times a day 8 Active triamcinolone (KENALOG) 0.025 % cream Apply topically 2 (two) times a day Active losartan (COZAAR) 25 mg tablet Take 1 tablet (25 mg total) by mouth daily 2 Active famotidine (PEPCID) 20 mg tablet Take 1 tablet (20 mg total) by mouth 2 (two) times a day 2 Active Mo-H0-lwg-zinc- eyz-iicd-xcozb (Caltrate 600-D Plus Minerals) 600 mg calcium- 800 unit-40 mg tablet,chewable Acti ve dexlansoprazole (DEXILANT) 60 mg capsule Take by mouth daily 3 Active amLODIPine (NORVASC) 5 mg tablet Take 1 tablet (5 mg total) by mouth daily Active fluticasone propionate (FLONASE) 50 mcg/actuation nasal spray Administer 1 spray into each nostril daily Active Active Problems Problem Noted Date Diagnosed Date History of 2019 novel coronavirus disease (COVID -19) 10/23/2019 Family history of ischemic heart disease 020 Essential hypertension 01/02/2019 Palpitations 08/07/2018 Chest pressure 08/07/2018 Dizziness 08/07/2018 Hyperlipidemia 08/07/2018 Family history of premature coronary artery dise ase 08/07/2018 Gastroesophageal reflux disease without esophagi tis 08/07/2018 Social History Tobacco Use Types Packs/Day Years Used Date Smoking Tobacco: Never Smokeless Tobacco: Never Tobacco Cessation:Counseling Given: Not Answered Alcohol Use Standard Drinks/Week Comments Never 0 (1 standard drink = 0.6 oz pur e alcohol) AUDIT-C Answer Date Recorded Frequency of Alcohol Consumption Never 08/07/2018 Average Number of Drinks Not on file 019 Frequency of Binge Drinking Not on file 04/2018 Personal Safety Answer Date Recorded Getting School Help Needed Not on file 03/25 Comments No Sex and Gender Information Value Date Recorded Sex Assigned at Not on file Legal Sex Female 1:57 AM SOAP PRESS FEEDER Gender Identity Female 07/11/2022 1:53 PM CDT Sexual Orientation Straight 07/11/2022 1: 53 PM CDT Last Filed Vital Signs Vital Sign Reading Time Taken Comments Blood Pressure 120/80 12/20/2023 10:52 AM CDT Pulse 62 12/20/2023 10:06 AM CDT Temperature - - Respiratory Rate 16 04/24/2019 8:35 AM SOAP PRESS FEEDER Oxygen Saturation 97% 12/20/2023 10:06 AM CDT Inhaled Oxygen Concentration - - Weight 73 kg (161 lb) 12/20/2023 10:06 AM CDT Height 167.6 cm (5' 6 ) 12/20/2023 10:06 AM CDT Body Mass Index 25.99 12/20/2023 10:06 AM CDT Plan of Treatment Not on file Insurance [facility] [place] [address] [facility] [place] [address] A[employer] MEDICARE GOLD Care Teams Smog Technician Relationship Specialty Start Date End Date Monisha Contreras DO PCP - General Family Medicine 10/23/19
--- OUTSIDE RECORDS SUMMARY | 2024-05-26 13:51 | XMS_ITS | Encounter Summary ---
Author Organization [facility] Address [address] [place] [address] Phone Care Team Providers Care Desk Clerks Supervisor Name Role Phone Freddie Finn MD Primary Care Provider [phone] Pastor Pittman DO Unavailable [phone] Reason for Visit * Reason Comments Medication Refill Encounter Details Date Type Department Care Team (Late st Contact Info) Description 04/15/2021 Refill [facility] - Gastroenterology - [place] [address] [place] [id number] Candelaria Olivier Heidi, [facility] [address] [place] [address] Medication Refill Social History Tobacco Use Types [...] Telephone Encounter - Sybil Murcia RN - 04/15/2021 8:49 AM AUTO CLAIM REPRESENTATIVE Medication refilled and signed per [facility] chronic medication standing order for pediatric and adult patients. CLAIM REPRESENTATIVE documented in this encounter Plan of Treatment Not on file documented as of this encounter Visit Diagnoses Diagnosis Gastroesophageal reflux disease, unspecified whether esophagitis present documented in this encounter Care Teams Desk Clerks Supervisor Relationship Specialty Start Date End Date Freddie Finn MD [address] [place] [address] PCP - General Family Medicine 07/11/16 Pastor Pittman DO [address] [place] [address] Gastroenterology 11/28/16 documented as of this encounter
--- OUTSIDE RECORDS SUMMARY | 2024-05-26 13:51 | XMS_ITS | Clinical Summary ---
Author Organization [facility] Address [address] [place] [address] Care Team Providers Care Finish Patcher Name Role Phone Monisha Contreras Primary Care Provider [phone] Allergies Active Allergy Reactions Criticality Noted Date Comments Cefaclor GI Upset,Nausea Only 06/18/2023 Cephalosporins GI Upset,Nausea Only 06/18/2023 Codeine Unknown 11/08/2009 Erythromycin Eyes Water & Itch 06/18/2023 Ibuprofen GI Upset,Nausea Only 06/18/2023 Iodinated Contrast Media Shortness of Breath,Throat swelling High 06/18/2023 Misc. Sulfonamide Containing Compounds Hives,Itching,Rash Low 06/18/2023 Tobramycin GI Upset,Nausea Only 06/18/2023 Medications RESTASIS 0.05 % ophthalmic emulsion 04/09/2002 Active dexlansoprazole (DEXILANT) 60 MG capsule 06/07/2022 Active ezetimibe-simva statin (VYTORIN) 10-10 MG tablet Active losartan (COZAAR) 25 MG tablet 07/04/2021 Active triamcinolone (KENALOG) 0.025 % cream Active famotidine (PEPCID) 20 MG tablet Active amLODIPine (NORVASC) 5 MG tablet Take 1 tablet (5 mg total) by mouth daily. Active propranolol LA (INDERAL LA) 60 MG 24 hr capsuleIndicati ons:Essential tremor Take 1 capsule (60 mg total) by mouth daily. 90 capsule 3 02/11/2024 Active Active Problems Problem Noted Date Diagnosed Date Acid reflux disease with ulcer 06/18/2023 High cholesterol 06/18/2023 Pityriasis rosea 06/18/2023 Bilateral hand pain 10/19/2021 High blood pressure 07/04/2021 Esophageal dysmotility 08/03/2020 Family history of ischemic heart disease 020 Dizziness 08/07/2018 Chest pressure 08/07/2018 Family history of premature coronary artery dise ase 08/07/2018 Palpitations 08/07/2018 Primary osteoarthritis of left knee 06/05/2017 Osteopenia 04/09/2009 Dry eye syndrome of both eyes 04/09/2002 Essential tremor 04/09/1985 Social History Tobacco Use Types Packs/Day Years Used Date Smoking Tobacco: Never Passive Smoke Exposure: Never Smokeless Tobacco: Never Tobacco Cessation:Counseling Given: No Alcohol Use Standard Drinks/Week Comments Never 0 (1 standard drink = 0.6 oz pur e alcohol) PHQ-2 Answer Date Recorded Patient Health Questionnaire-2 Score 0 06/18/2023 Comments Unknown Sex and Gender Information Value Date Recorded Sex Assigned at Female 07/24/2023 11:35 AM CDT Legal Sex Female 1:13 PM AVIATION PROJECT MANAGER Gender Identity Female 07/24/2023 11:35 AM CDT Sexual Orientation Straight 07/24/2023 11 :35 AM CDT Last Filed Vital Signs Vital Sign Reading Time Taken Comments Blood Pressure 130/78 02/11/2024 10:00 AM AVIATION PROJECT MANAGER Pulse 65 02/11/2024 10:00 AM AVIATION PROJECT MANAGER Temperature 36.3 C (97.3 F) 02/11/2024 10:00 AM AVIATION PROJECT MANAGER Respiratory Rate - - Oxygen Saturation 99% 02/11/2024 10:00 AM AVIATION PROJECT MANAGER Inhaled Oxygen Concentration - - Weight 73.5 kg (162 lb) 02/11/2024 10:00 AM AVIATION PROJECT MANAGER Height 167.6 cm (5' 6 ) 02/11/2024 10:00 AM AVIATION PROJECT MANAGER Body Mass Index 26.15 02/11/2024 10:00 AM AVIATION PROJECT MANAGER Plan of Treatment Upcoming Encounters Date Type Department Care Team (Late st Contact Info) Description 08/11/2024 10:00 AM CDT Office Visit [facility] - [address], [address] [place] [address] Rosmery Francisco MD [address] [place] [address] Health Maintenance Due Date Last Done Comments Colorectal Cancer Screening Colonoscopy (10 Years) 1953 Hepatitis C 1971 Mammogram Screening 1993 Annual Medicare Wellness Visit 2018 Dexa Scan (General) 2018 COVID-19 Vaccine ( season) 2023 01/18/2023, 12/15/2021, 02/21/2021, Additional history exists Influenza Adult (#1) 2024 12/31/2020, 12/24/2019, 01/09/2019, Additional history exists PHQ-2 (Physician [place]) 04/09/2024 06/18/2023 PHQ-2 (Physician [place]) 06/17/2024 06/18/2023 DTaP, Tdap and Td Vaccines (2 - Td or Tdap) 02/02/2033 02/02/2023 Zoster Vaccines Completed 12/08/2018, 06/11/2018 Pneumococcal Vaccine: 65+ Years Completed 02/19/2020, 06/11/2018 RSV Immunization or 60+ Years Completed 02/02/2023 Meningococcal B Vaccine Aged Out No l onger eligible based on patient's age to complete this topic Meningococcal Vaccine Aged Out No kristel hayder eligible based on patient's age to complete this topic RSV Immunizations Under 20 Months Aged Out No longer eligible based on patient's age to complete this topic Insurance [employer] Care Teams Finish Patcher Relationship Specialty Start Date End Date Monisha Contreras DO [address] [place] [address] PCP - General FAMILY PRACTICE 04/05/23
--- OUTSIDE RECORDS SUMMARY | 2024-05-26 13:51 | XMS_ITS | Clinical Summary ---
Author Organization [facility] Address [address] [place] [address] Care Team Providers Care Transmission System Operator Name Role Phone Angus Felix MD Unavailable [phone] Monisha Contreras DO Primary Care Provider [phone] Source Comments [facility],non-owned Affiliates and Associated Physician Practices is amultiple site organization consisting of ambulatory clinics and hospital sitesin [place], [place], [place] and [place]. This disclosure is being madepursuant to the Care Everywhere program and may not contain all information available regarding this patient. Last updated 17.[facility] Allergies Active Allergy Reactions Criticality Noted Date [...] Comments Blood Pressure 124/62 02/23/2022 10:32 AM BUSINESS MANAGEMENT INTERN Pulse 81 02/23/2022 10:32 AM BUSINESS MANAGEMENT INTERN Temperature 36.9 C (98.4 F) 02/23/2022 10:32 AM BUSINESS MANAGEMENT INTERN Respiratory Rate - - Oxygen Saturation 99% 02/23/2022 10:32 AM BUSINESS MANAGEMENT INTERN Inhaled Oxygen Concentration - - Weight 72.8 kg (160 lb 6.4 oz) 02/23/2022 10:32 AM BUSINESS MANAGEMENT INTERN Height 165.1 cm (5' 5 ) 02/23/2022 10:32 AM BUSINESS MANAGEMENT INTERN Body Mass Index 26.69 02/23/2022 10:32 AM BUSINESS MANAGEMENT INTERN Plan of Treatment Health Maintenance Due Date Last Done Comments BONE DENSITY TESTING 1955 COLOGUARD (AGES 45-75) - COLON CA SCREENING 1953 COLON MONITORING 1953 COLONOSCOPY - COLON CA SCREENING 1953 CT COLONOGRAPHY - COLON CA SCREENING 1953 Colorectal Cancer Screening 1953 FIT - COLON CA SCREENING 1953 FLEX SIG - COLON CA SCREENING 1953 MAMMOGRAM 1953 HEPATITIS C SCREENING 04/18/1971 DTAP/TDAP/TD VACCINES (1 - Tdap) 1972 PNEUMOCOCCAL VACCINE 50+ (1 of 1 - PCV) 2003 ZOSTER VACCINE (1 of 2) 2003 SCREENING FOR DIABETES 10/19/2021 COVID-19 VACCINE (3 - season) 2023 06/15/2020, 05/12/2020 INFLUENZA VACCINE (#1) 2023 , 12/24/2019, 01/09/2019, Additional history exists DEPRESSION SCREENING 04/09/2024 MEDICARE AWV CALENDAR YEAR 2024 Respiratory Syncytial Virus (RSV) Vaccine Pt: or over 60 yrs (1 - 1-dose 75+ series) 2028 HEPATITIS B VACCINE Aged Out No longe r eligible based on patient's age to complete this topic HIB VACCINE Aged Out No longer eligi ble based on patient's age to complete this topic HPV VACCINE Aged Out No longer eligi ble based on patient's age to complete this topic MENINGOCOCCAL (Group B) VACCINE Aged Out No longer eligible based on patient's age to complete this topic MENINGOCOCCAL VACCINE Aged Out No kristel hayder eligible based on patient's age to complete this topic Care Teams Transmission System Operator Relationship Specialty Start Date End Date Diane MonishaDO ken [address] [place] [address] PCP - General 06/02/22 [place] [id number] [place] [address] Orthopedic Surgery 06/05/17
--- OUTSIDE RECORDS SUMMARY | 2024-05-26 13:51 | XMS_ITS | Clinical Summary ---
Author Organization [facility] [address] Address [address] [place] [address] Care Team Providers Care Sales Architect Name Role Phone Monisha Contreras DO Primary Care Provider [phone] Allergies Active Allergy Reactions Criticality Noted Date [...] 2 (two) times a day 2 Active Ov-W2-zzh-zinc- uyz-vcar-xlucc (Caltrate 600-D Plus Minerals) 600 mg calcium- [...] Gastroesophageal reflux disease without esophagi tis 08/07/2018 Surgical History Surgery Date Site/Laterality Comments EXPLORATORY LAPAROTOMY TONSILLECTOMY Medical History Medical History Date Comments Heart murmur Hyperlipidemia Acid indigestion Arthritis Ovarian cyst Hypertension Tremor Family History Medical History Relation Name Comments Heart attack Brother Hodgkin's lymphoma Father Lung cancer Father Pneumonia Father Colon cancer Father's Brother Aneurysm Mother COPD Mother Pneumonia Mother Stroke Mother defects Mother's Sister Breast cancer Paternal Grandmother Ovarian cancer Neg Hx Pancreatic cancer Neg Hx Prostate cancer Neg Hx Uterine cancer Neg Hx Relation Name Status Comments Brother (Age 49) Father (Age 78) Father's Brother Mother (Age 78) Mother's Sister Paternal Grandmother Sister 1 Alive Sister 2 Alive Social History Tobacco Use Types Packs/Day Years [...] on file Legal Sex Female 1:57 AM TOURISM RADIO PRESENTER Gender Identity Female 07/11/2022 1:53 PM CDT Sexual Orientation Straight 07/11/2022 1: 53 PM CDT Obstetrics History Para Term AB IAB SAB Ectopic Multiple Livin g Live Births 0 0 0 0 0 0 0 0 0 0 0 Last Filed Vital Signs Vital Sign Reading Time Taken Comments Blood Pressure 120/80 12/20/2023 10:52 AM CDT Pulse 62 12/20/2023 10:06 AM CDT Temperature - - Respiratory Rate 16 04/24/2019 8:35 AM TOURISM RADIO PRESENTER Oxygen Saturation 97% 12/20/2023 10:06 AM CDT Inhaled Oxygen Concentration - - Weight 73 kg (161 lb) 12/20/2023 10:06 AM CDT Height 167.6 cm (5' 6 ) 12/20/2023 10:06 AM CDT Body Mass Index 25.99 12/20/2023 10:06 AM CDT Plan of Treatment Health Maintenance Due Date Last Done Comments Breast Cancer Screening-Mammogram 1955 Colon Cancer Screening-Colonoscopy 1953 Depression Screening 1953 Fall Risk Assessment 1953 Hepatitis C Screening 1953 Osteoporosis Screening-Bone Density Scan 1953 DTaP/Tdap/Td Vaccine (1 - Tdap) 1964 Hepatitis B Screening 1971 Well Visit 65+ 07/12/2023 07/11/2022 Covid-19 Vaccine (3 2023-2 5 season) 2023 06/15/2020, 05/12/2020 Influenza Vaccine (#1) 2023 , 12/24/2019, 01/09/2019, Additional history exists Zoster Vaccine Completed 12/08/2018, 06/11/2018 Pneumococcal vaccine 65+ Completed 02/19/2020, 08/2018 Insurance [facility] [place] [address] [facility] [address] AETNA MEDICARE GOLD Care Teams Sales Architect Relationship Specialty Start Date End Date Monisha Contreras DO PCP - General Family Medicine 10/23/19
--- OUTSIDE RECORDS SUMMARY | 2024-05-26 13:51 | XMS_ITS | Clinical Summary ---
Author Organization [facility] Address [address] [facility], [address] [address] Phone Care Team Providers Care Report Developer Name Role Phone Freddie Finn MD Primary Care Provider [phone] Pastor Pittman DO Unavailable [phone] Allergies Active Allergy Reactions Criticality Noted Date Comments Cefaclor Other (see Comments) 05/15/2019 Abdominal pain Cephalosporins Other (see Comments) 05/15/2019 Severe abdominal pain Iodinated Contrast Media Anaphylaxis High 04/10/2019 Patient has taken prednisone and benadryl prior to having contrast and was fine. Erythromycin Other (see Comments) High 04/10/2019 Eye drops, caused chemical burn to eyes Ibuprofen Other (see Comments) 05/15/2019 Abdominal pain Nsaids Other (see Comments) Low 04/10/2019 Hurts stomach Other-Environmental Allergen (Not Found In Search) Other (see Comments) Low 04/10/2019 Hurts stomach Cefalor, Cephalosporin, topramycin, Sulfacetamide Rash Low 04/10/2019 Medications simvastatin (ZOCOR) 10 MG Tablet Take 10 mg by mouth every evening. Active propranolol (INDERAL) 10 MG Tablet Take 10 mg by mouth 3 times daily. Active triamcinolone (KENALOG) 0.025 % Cream Apply 2 times daily. Application Site: Female area Active Calcium Carbonate-Vitami n D (CALTRATE 600+D PO) Take by mouth. Activ e cycloSPORINE (RESTASIS OP) Place in affected eye(s). Eye drops Active Cholecalciferol 2000 UNIT Capsule once a day 8 Active estradiol (ESTRACE) 0.1 MG/GM Cream USE 1 GRAM PER VAGINA AT BEDTIME 1 2 TIMES PER WEEK 0 Active Multiple Vitamin (Multivitamins) Capsule Take 1 Cap by mouth. Active ofloxacin (OCUFLOX) 0.3 % Solution INSTILL 1 DROP INTO LEFT EYE EVERY DAY 0 Active pimecrolimus (ELIDEL) 1 % Cream Apply 2 times daily. Application Site: Face (Description and Location) Active pantoprazole (PROTONIX) 40 MG Tablet Delayed ResponseIndicati ons:Gastroesopha geal reflux disease, unspecified whether esophagitis present TAKE 1 TABLET BY MOUTH TWICE A DAY 180 Tablet 2 Active famotidine (PEPCID) 20 MG TabletIndication s:Gastroesophage al reflux disease, unspecified whether esophagitis present TAKE 1 TABLET BY MOUTH TWICE A DAY 180 Tablet 2 Active Active Problems Problem Noted Date Diagnosed Date Gastroesophageal reflux disease 08/03/2020 Esophageal dysmotility 08/03/2020 Immunizations Immunization Administration Dates Next Due Covid-19, Mrna, Lnp-s, PF, 1 00 mcg/0.5 mL Dose (Moderna) 06/15/2020,05/12/2020 Influenza Vaccine greater than 3 yrs 12/31/2020 Influenza Vaccine, Quadrivalent, PF 01/16/2018 Influenza, High-dose, Quadrivalent 12/24/2019 Influenza, high-dose, trivalent, PF 12/24/2019,1 Pneumococcal Vaccine - 13 Valent 06/11/2018 Pneumococcal Vaccine Adult - 23 Valent 0 Zoster Vaccine Recombinant 12/08/2018,06/11/2018 Family History Medical History Relation Name Comments Heart Attack Brother Lung Cancer Father Breast Cancer Maternal Aunt Aneurysm Mother Chronic Obstructive Pulmonary Disease Mother Stroke Mother Breast Cancer Paternal Grandmother Relation Name Status Comments Brother Father Maternal Aunt Mother Paternal Grandmother Social History Tobacco Use Types Packs/Day Years [...] Sign Reading Time Taken Comments Blood Pressure 158/90 08/03/2020 8:47 AM CDT Pulse 74 08/03/2020 8:47 AM CDT Temperature 35.6 C (96 F) 08/03/2020 8:47 AM CDT Respiratory Rate 18 08/03/2020 8:47 AM CDT Oxygen Saturation 97% 08/03/2020 8:47 AM CDT Inhaled Oxygen Concentration - - Weight 71.2 kg (157 lb) 08/03/2020 8:47 AM CDT Height 167.6 cm (5' 6 ) 08/03/2020 8:47 AM CDT Body Mass Index 25.34 08/03/2020 8:47 AM CDT Plan of Treatment Health Maintenance Due Date Last Done Comments DEXA Bone Density 1955 Hepatitis C Virus (HCV) Screening 1955 TdaP Immunization 1953 Cologuard 2003 Immunochemical Fecal Occult Blood 2003 Mammogram 2003 Influenza Immunization (#1) 12/09/202312/09, 12/24/2019, 12/24/2019, Additional history exists SARS-COV-2 Immunization ( season) 2023 02/21/2021, 06/15/2020, 05/12/2020 Colonoscopy 11/23/2026 11/23/2016, 08/17/2006 Colorectal Cancer Screening 11/23/2026 Respiratory Syncytial Virus (RSV) Immunization (Adult) (1 - 1-dose 75+ series) 2028 11/23/2016, 08/17/2006 Zoster Immunization Completed 12/08/2018, 9 Pneumococcal Immunization (50+ years) Completed 02/19/2020, 06/11/2018 Pneumococcal Immunization Combined Discontinued 02/19/2020, 06/11/2018 Hepatitis B Immunization Aged Out No longer eligible based on patient's age to complete this topic Meningococcal Immunization (ACWY) Aged Out No longer eligible based on patient's age to complete this topic Rotavirus Immunization Aged Out No lo nger eligible based on patient's age to complete this topic Procedures Procedure Name Priority Date/Time Associated Diagnosis Comments COLONOSCOPY Routine 11/23/2016 from Last 3 Months or Most Recently Relevant to Health Maintenance Results * HM COLONOSCOPY (11/23/2016) us Freddie Finn MD PROCEDURE/MINOR SURGICAL ORDE QUINTEN Final Result from Last 3 Months or Most Recently Relevant to Health Maintenance Insurance MEDICARE C AETNA Care Teams Report Developer Relationship Specialty Start Date End Date Freddie Finn MD [address] [place] [address] PCP - General Family Medicine 07/11/16 Pastor Pittman DO [address] [place] [address] Gastroenterology 11/28/16
== END 2024-05-26 10:47 | disposition home or self-care (01) ==
LOC: ANHLAB 10:47
PROVIDERS: PCP Family Medicine; Visit Provider Family Medicine
DX: U07.1 COVID-19 (principal)
CPT/HCPCS: 87637

== ENCOUNTER 2024-08-04 12:49 | Outpatient (CLI) | payer MEDICARE, SELFPAY ==
--- NOTE | ~2024-08-04 | MM_ITS ---
EXAMINATION: MM diagnostic roberto carlos BI w arun HISTORY: 4 years left breast pain, single incident of right breast discharge 2 months ago TECHNIQUE: 3-D tomosynthesis images of the breasts were performed and synthetic 2-D images were gener ated. CAD analysis was submitted and interpreted. COMPARISON: 12/28/2023, 08/20/2023, 12/04/2029, 12/01/2021 BREAST PARENCHYMAL COMPOSITION:Dense: The breasts are heterogeneously dense, which may obscure small masses. FINDINGS: Stable parenchymal pattern of both breasts. Benign calcifications at the upper, left breast are mildly increased, but not suspicious in appearance. No suspicious mass lesion or distortion. IMPRESSION: No mammographic evidence for malignancy. BI-RADS Category 2: Benign finding(s). Reviewed, dictated and finalized at [facility].
--- OUTSIDE RECORDS SUMMARY | 2024-08-04 14:29 | XMS_ITS | Encounter Summary ---
Author Organization [facility] Address [address] [place] [address] Care Team Providers Care Public Safety Telecommunicator Name Role Phone Angus Felix MD Unavailable [phone] Moinsha Contreras DO Primary Care Provider [phone] Encounter Details Date Type Department Care Team (Late st Contact Info) Description 11/16/2020 Lab Requisition [facility] Care DermPath Lab [address] [place] [address] Augusto Moore MD [address] [place] [address] Social History Tobacco Use Types Packs/Day Years Used Date Smoking Tobacco: Never Assessed Comments Unknown Sex and Gender Information Value Date Recorded Sex Assigned at Not on file Legal Sex Female 9:41 AM ACCOUNT TECHNICIAN Gender Identity Not on file Sexual Orientation Not on file documented as of this encounter Plan of Treatment Not on file documented as of this encounter Procedures Procedure Name Priority Date/Time Associated Diagnosis Comments DERMATOPATHOLOGY Routine 11/15/2020 3:33 AM CDT documented in this encounter Results * DERMATOPATHOLOGY (11/15/2020 3:33 AM CDT) Case Report Dermatopathology Report Case: [id number] Authorizing Provider: Augusto Moore MD Collected: 11/15/2020 03:33 AM Ordering Location: [facility] DermPath Lab Received: 11/16/2020 05:46 AM Pathologist: Abigail Jang MD Specimen: Skin, left calf 4:34 PM CDT DERMATOPATHOLOGY LABORATORY Final Diagnosis Specimen A. SKIN, left calf: BENIGN VERRUCOUS KERATOSIS, INFLAMED (L82.1) (see microscopic description) 4:34 PM CDT DERMATOPATHOLOGY LABORATORY Clinical History Lentigo/SK vs BCCA. Path # [id number]. 4:34 PM CDT DERMATOPATHOLOGY LABORATORY Gross Description Specimen A: Received is one formalin filled container labeled with the patient's name and designated left calf. The specimen consists of a shave biopsy measuring [id number]. Jar 0. 4:34 PM CDT DERMATOPATHOLOGY LABORATORY [...] characteristic determined by the Dermatopathology Laboratory at [facility], directed by Dr. Zoë Hassan. These tests need not be, and therefore are not, approved by the [place] Food and Drug Administration. The tests are used for clinical purposes. Billing Codes Specimen Charges Stain Charges 00584 1 4:34 PM CDT DERMATOPATHOLOGY LABORATORY Embedded Images 4:34 PM CDT DERMATOPATHOLOGY LABORATORY Pathology/Cytolo gy TISSUE SPECIMEN FROM SKIN / Unknown 11/15/2020 3:33 AM CDT 11/16/2020 5:46 AM CDT Augusto Moore MD LAB - PATHOLOGY/CYTOLOGY ORDER ROBIN Final Result DERMATOPATHOLOGY LABORATORY [facility] - Department of Dermatology [address], [address] [phone] documented in this encounter Visit Diagnoses Not on filedocumented in this encounter Care Teams Public Safety Telecommunicator Relationship Specialty Start Date End Date Monisha Contreras DO [address] [address] PCP - General 06/02/22 [place] [address] [address] [address] Orthopedic Surgery 06/05/17 documented as of this encounter
--- OUTSIDE RECORDS SUMMARY | 2024-08-04 14:29 | XMS_ITS | Clinical Summary ---
Author Organization [facility] Address [address] [facility], [address] [address] Phone Care Team Providers Care Automotive Production Worker Name Role Phone Freddie Finn MD Primary Care Provider [phone] Pastor Pittman DO Unavailable [phone] Allergies Active Allergy Reactions Criticality Noted [...] Health Maintenance Due Date Last Done Comments Hepatitis C Virus (HCV) Screening 1955 TdaP Immunization 1955 Cologuard 2003 Immunochemical Fecal Occult Blood 2003 Influenza Immunization (#1) 12/09/202312/09, 12/24/2019, 12/24/2019, [...] Procedure Name Priority Date/Time Associated Diagnosis Comments HM COLONOSCOPY Routine 11/23/2016 from Last 3 Months or Most Recently Relevant to Health Maintenance Results * HM COLONOSCOPY (11/23/2016) Freddie Finn MD PROCEDURE/MINOR SURGICAL ORDDavid SHIPLEY Final Result from Last 3 Months or Most Recently Relevant to Health Maintenance Insurance MEDICARE C [employer] Care Teams Automotive Production Worker Relationship Specialty Start Date End Date Freddie Finn MD [address] [facility] [place] [address] PCP - General Family Medicine 07/11/16 Pastor Pittman DO [address] [place] [address] Gastroenterology 11/28/16
--- OUTSIDE RECORDS SUMMARY | 2024-08-04 14:29 | XMS_ITS | Encounter Summary ---
Author Organization [facility] Address [address] [place] [address] Phone Care Team Providers Care Photography Colorist Name Role Phone Freddie Finn MD Primary Care Provider [phone] Pastor Pittman DO Unavailable [phone] Reason for Visit * Reason Comments Medication Refill Encounter Details Date Type Department Care Team (Late st Contact Info) Description 10/07/2021 Refill [facility] - [place] [address] [place] [address] Candelaria Olivier Heidi, PAC [address] [place] [address] Medication Refill Social History Tobacco Use Types [...] from primary care or she may use [id number] famotidine. * Telephone Encounter - Sybil Murcia [...] present documented in this encounter Care Teams Photography Colorist Relationship Specialty Start Date End Date Freddie Finn MD [address] [facility] [place] [address] PCP - General Family Medicine 07/11/16 Pastor Pittman DO [address] [place] [address] Gastroenterology 11/28/16 documented as of this encounter
--- OUTSIDE RECORDS SUMMARY | 2024-08-04 14:29 | XMS_ITS | Referral Summary ---
Author Organization [facility] [address] Address [address] [place] [address] Care Team Providers Care Log Pond Worker Name Role Phone Monisha Contreras DO Primary Care Provider [phone] Allergies Active Allergy Reactions Criticality Noted Date [...] 2 (two) times a day 2 Active Ux-P6-pre-zinc- rsl-hpec-ouddh (Caltrate 600-D Plus Minerals) 600 mg calcium- [...] on file Legal Sex Female 1:57 AM BLOCK SAWYER Gender Identity Female 07/11/2022 1:53 PM CDT Sexual Orientation Straight 07/11/2022 1: 53 PM CDT Last Filed Vital Signs Vital Sign Reading Time Taken Comments Blood Pressure 120/80 12/20/2023 10:52 AM CDT Pulse 62 12/20/2023 10:06 AM CDT Temperature - - Respiratory Rate 16 04/24/2019 8:35 AM BLOCK SAWYER Oxygen Saturation 97% 12/20/2023 10:06 AM CDT Inhaled Oxygen Concentration - - Weight 73 kg (161 lb) 12/20/2023 10:06 AM CDT Height 167.6 cm (5' 6 ) 12/20/2023 10:06 AM CDT Body Mass Index 25.99 12/20/2023 10:06 AM CDT Plan of Treatment Not on file Insurance [facility] [address] [facility] [place] [address] [employer] MEDICARE GOLD Care Teams Log Pond Worker Relationship Specialty Start Date End Date Monisha Contreras DO PCP - General Family Medicine 10/23/19
--- OUTSIDE RECORDS SUMMARY | 2024-08-04 14:29 | XMS_ITS | Clinical Summary ---
Author Organization [facility] Address [address] [place] [address] Care Team Providers Care Frozen Yogurt Maker Name Role Phone Monisha Contreras Primary Care Provider [phone] Allergies Active Allergy Reactions Criticality Noted Date [...] AM CDT Legal Sex Female 1:13 PM WORM FARMER Gender Identity Female 07/24/2023 11:35 AM CDT Sexual Orientation Straight 07/24/2023 11 :35 AM CDT Last Filed Vital Signs Vital Sign Reading Time Taken Comments Blood Pressure 130/78 02/11/2024 10:00 AM WORM FARMER Pulse 65 02/11/2024 10:00 AM WORM FARMER Temperature 36.3 C (97.3 F) 02/11/2024 10:00 AM WORM FARMER Respiratory Rate - - Oxygen Saturation 99% 02/11/2024 10:00 AM WORM FARMER Inhaled Oxygen Concentration - - Weight 73.5 kg (162 lb) 02/11/2024 10:00 AM WORM FARMER Height 167.6 cm (5' 6 ) 02/11/2024 10:00 AM WORM FARMER Body Mass Index 26.15 02/11/2024 10:00 AM WORM FARMER Plan of Treatment Upcoming Encounters Date Type Department Care Team (Late st Contact Info) Description 08/11/2024 10:00 AM CDT Office Visit [facility] - [address] [place] [address] Rosmery Francisco MD [address] [place] [address] Health Maintenance Due Date Last Done Comments Colorectal Cancer Screening Colonoscopy (10 Years) 1953 Hepatitis C 1971 Mammogram Screening 1993 Annual Medicare Wellness Visit 2018 Dexa Scan (General) 2018 COVID-19 Vaccine ( season) 2023 01/18/2023, 12/15/2021, 02/21/2021, Additional history exists PHQ-2 (Physician [place]) 04/09/2024 06/18/2023 DTaP, Tdap and Td Vaccines (2 - Td or Tdap) 02/02/2033 02/02/2023 Zoster Vaccines Completed 12/08/2018, 06/11/2018 Pneumococcal Vaccine: 50+ Years Completed 02/19/2020, 06/11/2018 RSV Immunization or [...] complete this topic Insurance [employer] Care Teams Frozen Yogurt Maker Relationship Specialty Start Date End Date Monisha Contreras DO [address] [place] [address] PCP - General FAMILY PRACTICE 04/05/23
--- OUTSIDE RECORDS SUMMARY | 2024-08-04 14:29 | XMS_ITS | Clinical Summary ---
Author Organization [facility] [address] Address [address] [place] [address] Care Team Providers Care Certified Fire Investigator Name Role Phone Monisha Contreras DO Primary Care Provider [phone] Allergies Active Allergy Reactions Criticality Noted Date [...] 2 (two) times a day 2 Active Rb-H4-wzo-zinc- yzn-vlag-pdxke (Caltrate 600-D Plus Minerals) 600 mg calcium- [...] on file Legal Sex Female 1:57 AM RADIOLOGY TECH Gender Identity Female 07/11/2022 1:53 PM CDT [...] - Respiratory Rate 16 04/24/2019 8:35 AM RADIOLOGY TECH Oxygen Saturation 97% 12/20/2023 10:06 AM CDT [...] Well Visit 65+ 07/12/2023 07/11/2022 Covid-19 Vaccine (2023-2 5 season) 2023 06/15/2020, 05/12/2020 Influenza Vaccine (Season Ended) 2024 12/31/2020, 12/24/2019, 01/09/2019, Additional history exists Zoster Vaccine Completed 12/08/2018, 06/11/2018 Pneumococcal vaccine 65+ Completed 02/19/2020, 08/2018 Insurance [facility] [place] [address] [facility] [place] [address] [employer] MEDICARE GOLD Care Teams Certified Fire Investigator Relationship Specialty Start Date End Date Monisha Contreras DO PCP - General Family Medicine 10/23/19
--- OUTSIDE RECORDS SUMMARY | 2024-08-04 14:29 | XMS_ITS | Encounter Summary ---
Author Organization [facility] Address [address] [place] [address] Phone Care Team Providers Care Message Broker Developer Name Role Phone Freddie Finn MD Primary Care Provider [phone] Pastor Pittman DO Unavailable [phone] Reason for Visit * Reason Comments Medication Refill Encounter Details Date Type Department Care Team (Late st Contact Info) Description 01/18/2021 Refill [facility] - [place] [address] [place] [address] Candelaria Olivier Heidi, PAC [address] [place] [address] Medication Refill Social History Tobacco Use Types [...] present documented in this encounter Care Teams Message Broker Developer Relationship Specialty Start Date End Date Freddie Finn MD [address] [place] [address] PCP - General Family Medicine 07/11/16 Pastor Pittman DO [address] [place] [address] Gastroenterology 11/28/16 documented as of this encounter
--- OUTSIDE RECORDS SUMMARY | 2024-08-04 14:29 | XMS_ITS | Encounter Summary ---
Author Organization [facility] Address [address] [place] [address] Phone Care Team Providers Care Solution Coordinator Name Role Phone Freddie Finn MD Primary Care Provider [phone] Pastor Pittman DO Unavailable [phone] Reason for Visit * Reason Comments Medication Refill Encounter Details Date Type Department Care Team (Late st Contact Info) Description 04/15/2021 Refill [facility] - [facility] - [place] [address] [place] [address] Candelaria Olivier Heidi, PAC [address] [place] [address] Medication Refill Social History Tobacco Use Types [...] Sybil Murcia RN - 04/15/2021 8:49 AM MECHATRONICS TECHNOLOGIST Medication refilled and signed per [facility] chronic medication standing order for pediatric and adult patients. ATRONICS TECHNOLOGIST documented in this encounter Plan of Treatment Not on file documented as of this encounter Visit Diagnoses Diagnosis Gastroesophageal reflux disease, unspecified whether esophagitis present documented in this encounter Care Teams Solution Coordinator Relationship Specialty Start Date End Date Freddie Finn MD [address] [place] [address] PCP - General Family Medicine 07/11/16 Pastor Pittman DO [address] [place] [address] Gastroenterology 11/28/16 documented as of this encounter
--- OUTSIDE RECORDS SUMMARY | 2024-08-04 14:29 | XMS_ITS | Clinical Summary ---
Author Organization [facility] Address [address] [facility] [place] [address] Care Team Providers Care Branch Lending Manager Name Role Phone Angus Felix MD Unavailable [phone] Monisha Contreras DO Primary Care Provider [phone] Source Comments [facility],non-owned Affiliates and Associated Physician Practices is amultiple site organization consisting of ambulatory clinics and hospital sitesin [place], [place], [place] and [place]. This disclosure is being madepursuant to the Care Everywhere program and may not contain all information available regarding this patient. Last updated 17.[facility] Allergies Active Allergy Reactions Criticality Noted Date [...] document. Alwaysverify current medications with the patient. RESTASIS 0.05 % ophthalmic suspension Apply 1 drop to affected area 2 times daily 8 Active esomeprazole (NEXIUM) 40 MG capsule Take 1 capsule by mouth once daily 8 Active ezetimibe-simva statin (VYTORIN) 10-10 MG tablet Take 1 tablet by mouth once daily 8 Active propranolol (INDERAL) 10 MG tablet Take 1 tablet by mouth once daily 8 Active famotidine (PEPCID) 20 MG tablet Take 20 mg by mouth 2 times daily 2 Active losartan (COZAAR) 25 MG tablet Take 25 mg by mouth once daily 2 Active estradiol (ESTRACE) 0.1 MG/GM vaginal cream APPLY 1 GRAM VAGINALLY AT BEDTIME 1-2 TIMES PER WEEK 2 Active CALCIUM CARBONATE-VITAM IN D PO Take 2,000 Int'l Units/mL by mouth Active pimecrolimus (ELIDEL) 1 % cream Apply 60 g to affected area 2 times daily Active diclofenac sodium (Voltaren) 1 % gelIndications: Osteoarthritis Apply 2 (two) g to affected area 3 times daily Reasons: Joint Damage causing Pain and Loss of Function 350 g 3 2 Active Active Problems Problem Noted Date Diagnosed Date Primary osteoarthritis involving multiple joints 10/19/2021 Bilateral hand pain 10/19/2021 Primary osteoarthritis of left knee 06/05/2017 Social History Tobacco Use Types Packs/Day Years Used Date Smoking Tobacco: Never Smokeless Tobacco: Never Tobacco Cessation:Counseling Given: Not Answered Alcohol Use Standard Drinks/Week Comments Never 0 (1 standard drink = 0.6 oz pur e alcohol) Comments No Sex and Gender Information Value Date Recorded Sex Assigned at Not on file Legal Sex Female 9:41 AM CUFF STITCHER Gender Identity Not on file Sexual Orientation Not on file Last Filed Vital Signs Vital Sign Reading Time Taken Comments Blood Pressure 124/62 02/23/2022 10:32 AM CUFF STITCHER Pulse 81 02/23/2022 10:32 AM CUFF STITCHER Temperature 36.9 C (98.4 F) 02/23/2022 10:32 AM CUFF STITCHER Respiratory Rate - - Oxygen Saturation 99% 02/23/2022 10:32 AM CUFF STITCHER Inhaled Oxygen Concentration - - Weight 72.8 kg (160 lb 6.4 oz) 02/23/2022 10:32 AM CUFF STITCHER Height 165.1 cm (5' 5 ) 02/23/2022 10:32 AM CUFF STITCHER Body Mass Index 26.69 02/23/2022 10:32 AM CUFF STITCHER Plan of Treatment Health Maintenance Due Date [...] VACCINE (3 - season) 2023 06/15/2020, 05/12/2020 DEPRESSION SCREENING 04/09/2024 MEDICARE AWV CALENDAR YEAR 2024 INFLUENZA VACCINE (Season Ended) 2024 12/31/2020, 12/24/2019, 01/09/2019, Additional history exists Respiratory Syncytial Virus (RSV) Vaccine Pt: or [...] complete this topic MENINGOCOCCAL (Group B) VACCINE SHARED DECISION-MAKING Aged Out No longer eligible based on patient's age to complete this topic MENINGOCOCCAL GROUPS A/C/Y/W VACCINE Aged Out No longer eligible based on patient's age to complete this topic Insurance [employer] AETNA MEDICARE ADV SELF PAY NO INSURANCE Member Subscriber Plan / Payer (Ef fective for All Dates) Name:Zeny An Member ID:Not on file Relation to Subscriber:Not on file Name:ZENY AN Subscriber ID:Not on file (Home) Address: [address] [place] [id number] Payer ID:Not on file Group ID:Not on file Type:Self Pay Address: [place] [address] Care Teams Branch Lending Manager Relationship Specialty Start Date End Date JudsonelsyMonisha DO [address] [place] [address] PCP - General 06/02/22 [place] [address] [address] Orthopedic Surgery 06/05/17
== END 2024-08-04 12:50 | disposition home or self-care (01) ==
LOC: ANHIMG 12:52
PROVIDERS: PCP Family Medicine; Visit Provider Obstetrics & Gynecology
DX: N31.0 Uninhibited neuropathic bladder, not elsewhere classified (principal); N63.20 Unspecified lump in the left breast, unspecified quadrant; N64.4 Mastodynia
CPT/HCPCS: 77062; 77066; G0279

== ENCOUNTER 2025-01-13 14:16 | Outpatient (CLI) | payer MEDICARE, SELFPAY ==
--- OUTSIDE RECORDS SUMMARY | 2019-11-28 | XMS_ITS | Encounter Summary ---
Author Organization [facility] Healthcare Address [address] [place] [address] Care Team Providers Care Polisher And Buffer Name Role Phone Monisha Contreras DO Primary Care Provider [phone] Reason for Visit * Diagnostic Imaging (Routine) - Pending Review Specialty Diagnoses / Procedures Referred By Vishac calvin Referred To Contact Procedures Breast Imaging Screening Outside Reference Transcribed Order, Provider Referral ID Status Reason Start Date Expiration Date V isits Requested Visits Authorized [id number] Pending Review 08/25/2024 09/24/2025 1 1 Encounter Details Date Type Department Care Team (Late st Contact Info) Description 11/28/2019 Hospital Encounter [facility] [address] [place] [id number] Social History Tobacco Use Types Packs/Day Years Used Date Smoking Tobacco: Never Smokeless Tobacco: Never Alcohol Use Standard Drinks/Week Comments Never 0 (1 standard drink = 0.6 oz pur e alcohol) AUDIT-C Answer Date Recorded Frequency of Alcohol Consumption Never 08/07/2018 Average Number of Drinks Not on file 019 Frequency of Binge Drinking Not on file 04/2018 Comments No Sex and Gender Information Value Date Recorded Sex Assigned at Not on file Legal Sex Female 1:57 AM [employer] Gender Identity Female 07/11/2022 1:53 PM CDT Sexual Orientation Straight 07/11/2022 1: 53 PM CDT documented as of this encounter Plan of Treatment Not on file documented as of this encounter Procedures Procedure Name Priority Date/Time Associated Diagnosis Comments BREAST IMAGING MG SCREENING OUTSIDE REFERENCE Routine 11/28/2019 12:00 AM CDT documented in this encounter Results * Breast Imaging Screening Outside Reference (11/28/2019 12:00 AM CDT) Impressions [facility]_MAMMO_[facility] - 08/25/2024 11:41 AM CDT These images are for Reference purposes only and have not been reviewed by [facility] Radiology. There will be no report generated by a [facility] Radiologist. Narrative [facility]_MAMMO[facility] - 08/25/2024 11:41 AM CDT EXAMINATION: Images For Reference Purposes Only us Provider Transcribed Order IMG MAMMO PROCEDURES Final Result [facility] documented in this encounter Visit Diagnoses Not on filedocumented in this encounter Care Teams Polisher And Buffer Relationship Specialty Start Date End Date Monisha Contreras DO PCP - General Family Medicine 10/23/19 documented as of this encounter
--- NOTE | ~2025-01-13 | XR_ITS ---
EXAMINATION: XR abdomen/kub 1V DATE: 01/13/2025 14:35 INDICATION: Left-sided abdominal pain TECHNIQUE: A supine view of the abdomen on 2 radiographs was obtained. COMPARISON: None. FINDINGS: Moderate to large amount of stool. Moderate amount of air in the nondilated large bowel. Small amount of air in nondilated small bowel. No radiographic evidence for renal calculi. Mildly to convex curvature of the lumbar spine. IMPRESSION: 1. Nonspecific, nonobstructive bowel gas pattern with a moderate to large amount of stool. Reviewed, dictated and finalized at location Q. IMPRESSION: 1. Nonspecific, nonobstructive bowel gas pattern with a moderate to large amoun t of stool.
--- OUTSIDE RECORDS SUMMARY | 2025-01-13 15:13 | XMS_ITS | Clinical Summary ---
Author Organization [facility] [address] Address [address] [place] [address] Care Team Providers Care Benzene Washer Operator Name Role Phone Monisha Contreras Primary Care Provider [phone] Margaret Reaves MD Unavailable [phone] Allergies Active Allergy Reactions Criticality Noted Date [...] unit capsule once a day 8 Active triamcinolone (KENALOG) 0.025 % cream Apply topically 2 (two) times a day Active famotidine (PEPCID) 20 mg tablet Take 1 tablet (20 mg total) by mouth 2 (two) times a day 2 Active Nh-V1-rjc-zinc- zhs-smtz-kkooa (Caltrate 600-D Plus Minerals) 600 mg calcium- 800 unit-40 mg tablet,chewable Acti ve dexlansoprazole (DEXILANT) 60 mg capsule Take by mouth daily 3 Active amLODIPine (NORVASC) 5 mg tablet Take 1 tablet (5 mg total) by mouth daily Active fluticasone propionate (FLONASE) 50 mcg/actuation nasal spray Administer 1 spray into each nostril daily Active estradioL (ESTRACE) 0.01 % (0.1 mg/gram) vaginal cream PLEASE SEE ATTACHED FOR DETAILED DIRECTIONS 5 Active lidocaine (LIDODERM) 5 % APPLY 1 PATCH TOPICALLY FOR 12 HOURS, THEN REMOVE FOR 12 HOURS BEFORE REPLACING 5 Active losartan (COZAAR) 100 mg tablet TAKE 1 TABLET (100 MG) ORALLY DAILY 5 Active propranolol LA (INDERAL LA) 60 mg 24 hr capsule Take by mouth daily 5 Active predniSONE (DELTASONE) 50 mg tablet Take 1 tablet 13 hrs prior to exam on 01/19 at 7 pm, Take 1 tablet 7 hrs prior to exam on 01/20 at 1 am, Take 1 tablet 1 hr prior to exam on 01/20 at 7 am 3 tablet 5 Active diphenhydrAMINE (BENADRYL) 50 mg capsule Take 1 50 mg tablet 1 hour prior to exam on 01/20 at 7 am 1 capsule 5 Active Active Problems Problem Noted Date Diagnosed Date Recurrent chest pain 12/24/2024 Contrast media allergy 12/24/2024 History of 2019 novel coronavirus disease (COVID -19) 10/23/2019 Family history of ischemic heart disease 020 Essential hypertension 01/02/2019 Palpitations 08/07/2018 Chest pressure 08/07/2018 Dizziness 08/07/2018 Hyperlipidemia 08/07/2018 Family history of premature coronary artery dise ase 08/07/2018 Gastroesophageal reflux disease without esophagi tis 08/07/2018 Encounters Date Type Department Care Team Description 12/26/2024 8:47 AM CDT - 12/26/2024 11:59 PM CDT Hospital Encounter [id number] [place] [address] Abdominal pain, unspecified abdominal location Discharge Disposition: Discharge to home or self care 12/24/2024 10:15 AM CDT Office Visit [facility] [address] [place] [phone] Rory June MD Mixed hyperlipidemia (Primary Dx); Essential hypertension; Palpitations; Gastroesophageal reflux disease without esophagitis; Recurrent chest pain; Contrast media allergy 12/24/2024 Telephone [facility] [address] [place] [phone] Rory June MD 11/18/2024 10:57 AM CDT - 11/18/2024 11:59 PM CDT Hospital Encounter [facility] [address] [place] [address] Abdominal pain, left lower quadrant Discharge Disposition: Discharge to home or self care 11/18/2024 10:44 AM CDT - 11/18/2024 11:59 PM CDT Hospital Encounter [facility] [address] [place] [address] Left lower quadrant pain Discharge Disposition: Discharge to home or self care 10/22/2024 [facility] [address] [place] [phone] Angela Ngo CMA 10/20/2024 Telephone [facility] [address] [place] [address] [address] [place] [address] Valarie Brown NP 10/15/2024 Telephone [facility] Floor [address] [place] [address] Valarie Brown NP Mailed Genetic Testing 10/13/2024 Telephone [facility] [address] [place] [address] [address] [place] [address] Billie Gerard MD from Last 3 Months Surgical History Surgery Date Site/Laterality Comments EXPLORATORY LAPAROTOMY TONSILLECTOMY BREAST BIOPSY 10/06/2024 Right BREAST BIOPSY 10/06/2024 Left Medical History Medical History Date Comments Heart murmur Hyperlipidemia Acid indigestion Arthritis Ovarian cyst Hypertension Tremor Family History Medical History Relation Name Comments Heart attack Brother Breast cancer Father Hodgkin's lymphoma Father Lung cancer Father Pneumonia Father Colon cancer Father's Brother Aneurysm Mother COPD Mother Pneumonia Mother Stroke Mother Pancreatic cancer Mother's Brother defects Mother's Sister Breast cancer Mother's Sister Breast cancer Paternal Grandmother Breast cancer Sister 1 Tonya Hough IDC, es trogen receptor negative Ovarian cancer Neg Hx Prostate cancer Neg Hx Uterine cancer Neg Hx Relation Name Status Comments Brother (Age 49) Father (Age 78) Father's Brother Mother (Age 78) Mother's Brother Mother's Sister Paternal Grandmother Sister 1 Tonya Hough Alive Sister 2 Alive Social History Tobacco [...] on file 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 Gender Identity Female 07/11/2022 1:53 PM CDT Sexual Orientation Straight 07/11/2022 1: 53 PM CDT Obstetrics History Para Term AB IAB SAB Ectopic Multiple Livin g Live Births 0 0 0 0 0 0 0 0 0 0 0 Last Filed Vital Signs Vital Sign Reading Time Taken Comments Blood Pressure 138/80 12/24/2024 10:07 AM CDT Pulse 60 12/24/2024 10:07 AM CDT Temperature 36.5 C (97.7 F) 09/18/2024 8:08 AM CDT Respiratory Rate 16 04/24/2019 8:35 AM RETAIL ADVERTISING EXECUTIVE Oxygen Saturation 99% 12/24/2024 10: 07 AM CDT Inhaled Oxygen Concentration - - Weight 73.4 kg (161 lb 12.8 oz) 025 10:07 AM CDT Height 167.6 cm (5' 6) 12/24/2024 10:0 7 AM CDT Body Mass Index 26.12 12/24/2024 10:07 AM CDT Plan of Treatment Health Maintenance Due Date Last Done Comments Colon Cancer Screening-Colonoscopy 1955 Depression Screening 1955 Fall Risk Assessment 1955 Hepatitis C Screening 1955 Osteoporosis Screening-Bone Density Scan 1955 Hepatitis B Screening 1971 Well Visit 65+ 07/12/2023 07/11/2022 Covid-19 Vaccine (2023-2 5 season) 2024 01/21/2024, 01/18/2023, 12/15/2021, Additional history exists Influenza Vaccine (#1) 2024 , 01/18/2023, 01/04/2022, Additional history exists Breast Cancer Screening-Mammogram 09/18/2025 025 DTaP/Tdap/Td Vaccine (3 - Td or Tdap) 02/02/2033 02/02/2023, 05/27/2012 Zoster Vaccine Completed 12/08/2018, 08/2018, 07/05/2016 Pneumococcal vaccine 65+ Completed 02/19/2020, 08/2018 Medical Devices Implanted Type Area Warehouse And Receiving Supervisor Device Identifier Shelf Expiration Date Model / Serial / Lot [email or web address] Marker Biospy Site Mini Cork Shape Deployment Device Titanium [employer] Eviva 13cm [id number] - [id number] Implanted:Qty: 1 on 10/06/2024 at [facility] Left: Breast [email or web address] [id number] 05/12/2025 BINH VA-13 / / [id number] Bard Peripheral Vascular Ultraclip Bard 17ga 10cm 2 Trigger Permanent Ultrasound [id number] - [id number] Implanted:Qty: 1 on 10/06/2024 by Hiren Bliss MD at [facility] Right: Breast [employer]ipheral [employer] [id number] / / Procedures Procedure Name Priority Date/Time Associated Diagnosis Comments CT ABDOMEN PELVIS WO CONTRAST Schedule Routine, Read Routine (OP Routine) 12/26/2024 9:04 AM CDT Abdominal pain, unspecified abdominal location POCT LIPID PANEL Routine 12/24/2024 10:0 9 AM CDT Mixed hyperlipidemia XR KUB Schedule Routine, Read Routine (OP Routine) 11/18/2024 11:10 AM CDT Abdominal pain, left lower quadrant US ABDOMEN LIMITED Schedule Routine, Read Routine (OP Routine) 11/18/2024 11:00 AM CDT Left lower quadrant pain DIAGNOSTIC MAMMOGRAM BILATERAL W JONATHAN Schedule Routine, Read Routine (OP Routine) 09/18/2024 10:06 AM CDT Abnormal mammogram from Last 3 Months or Most Recently Relevant to Health Maintenance Results * CT Abdomen Pelvis WO Contrast (12/26/2024 9:04 AM CDT) Anatomical Region Laterality Modality Body N/A Computed Tomogra phy 12/29/2024 8:37 AM CDT Narrative 12/29/2024 8:40 AM CDT EXAM DESCRIPTION: CT ABDOMEN PELVIS WO CONTRAST REASON FOR STUDY: r10.9 Intermittent left upper quadrant sharp pain since 2021. History of hiatal hernia. Since October 17, constant mid Abdominal pain. See scanned in report for comparison; no images available. TECHNIQUE: CT scan of the abdomen and pelvis performed without intravenous and without oral contrast using helical scanning technique. Reconstructed coronal and sagittal MPR images reviewed. All images stored on PACS. Automated exposure control was used as a dose optimization technique for this examination. COMPARISON: None available FINDINGS: The sensitivity for detection of visceral lesions is diminished without the use of intravenous contrast. LOWER CHEST: No acute findings. LIVER: Normal length. GALLBLADDER: No radiodense gallstones. SPLEEN: Normal length. PANCREAS: No peripancreatic inflammation or fluid collection. ADRENALS: No adrenal mass. KIDNEYS/URINARY TRACT: No hydronephrosis. No urolithiasis. Water density lesions at the lower pole of the left kidney may represent small parapelvic cysts. GI: No bowel obstruction. Sigmoid colonic diverticula without acute diverticulitis. Normal appendix. There is a tiny hiatal hernia. PERITONEUM: No ascites or free air. VASCULATURE: No abdominal aortic aneurysm. MUSCULOSKELETAL: No acute skeletal abnormality. OTHER: No other abnormality. IMPRESSION: 1. No acute findings. 2. Tiny hiatal hernia. 3. Colonic diverticulosis. THIS IS AN ELECTRONICALLY VERIFIED FINAL REPORT 12/29/2024 8:40 AM - Electronically signed by Sergei Stephenson M.D. JR T: Report ID: [id number] Reading Location: [id number] Procedure Note Sergei Stephenson MD - 12/29/2024 EXAM DESCRIPTION: CT ABDOMEN PELVIS WO CONTRAST REASON FOR STUDY: r10.9 Intermittent left upper quadrant sharp pain since 2021. History of hiatal hernia. Since October 17, constant mid Abdominal pain. See scanned in reportfor comparison; no images available. TECHNIQUE: CT scan of the abdomen and pelvis performed without intravenousand without oral contrast using helical scanning technique. Reconstructed coronal and sagittal MPR images reviewed. All images stored on PACS. Automated exposure control was used as a dose optimization technique forthis examination. COMPARISON: None available FINDINGS: The sensitivity for detection of visceral lesions is diminished without the use of intravenous contrast. LOWER CHEST: No acute findings. LIVER: Normal length. GALLBLADDER: No radiodense gallstones. SPLEEN: Normal length. PANCREAS: No peripancreatic inflammation or fluid collection. ADRENALS: No adrenal mass. KIDNEYS/URINARY TRACT: No hydronephrosis. No urolithiasis. Waterdensity lesions at the lower pole of the left kidney may represent smallparapelvic cysts. GI: No bowel obstruction. Sigmoid colonic diverticula without acute diverticulitis. Normal appendix. There is a tiny hiatal hernia. PERITONEUM: No ascites or free air. VASCULATURE: No abdominal aortic aneurysm. MUSCULOSKELETAL: No acute skeletal abnormality. OTHER: No other abnormality. IMPRESSION: 1. No acute findings. 2. Tiny hiatal hernia. 3. Colonic diverticulosis. THIS IS AN ELECTRONICALLY VERIFIED FINAL REPORT 12/29/2024 8:40 AM - Electronically signed by Sergei Stephenson M.D., JR T: Report ID: [id number] Reading Location: [place] [address] us Provider Transcribed Order IMG CT PROCEDURES Fin al Result * (ABNORMAL) POCT lipid panel (12/24/2024 10:09 AM CDT) Cholesterol, POC 199 <200 MG/DL HDL, POC 65 >=40 mg/dL Triglycerides, POC 186(A) <=149 mg/dL LDL Cholesterol POC 96 <=129 mg/dL Chol/HDL Ratio, POC 1.5 NONE Non-HDL Cholesterol, POC 133 NONE mg/dL Cholesterol Total, POC 199 30 - 199 mg/dL Capillary blood 12/24/2024 1 0:09 AM CDT Rory June MD POINT OF CARE TEST ORDERA BLES Final Result * XR KUB (11/18/2024 11:10 AM CDT) Anatomical Region Laterality Modality Body, Abdomen N/A Computed Radiogr aphy 11/27/2024 8:18 AM CDT Addenda Addendum by Jac De Jesus MD on 12/18/2024 11:46 AM CDT ADDENDUM: This addendum report supersedes the original report dated 11/27/2024 Dictation error identified. Report should designate no unusual calcification. END OF ADDENDUM REPORT THIS IS AN ELECTRONICALLY VERIFIED FINAL REPORT 12/18/2024 11:46 AM Addendum Electronically signed by Jac De Jesus M.D. RB: RB Report ID: [id number] Reading Location: [id number] Narrative 11/27/2024 8:18 AM CDT EXAM DESCRIPTION: XR KUB REASON FOR STUDY: r10.32 Pt states having abd pain at belly button that radiates to left side 3 inches since 10/17/24 TECHNIQUE: Supine view COMPARISON: None available FINDINGS: Mild gaseous distention small and large bowel in a nonspecific fashion. Moderate to large stool burden. Unusual calcification. Moderate bony degenerative changes and moderate lumbar scoliosis convexity to the left. IMPRESSION: Nonspecific gas pattern with moderate to large stool burden. THIS IS AN ELECTRONICALLY VERIFIED FINAL REPORT 11/27/2024 8:18 AM - Electronically signed by Jac De Jesus M.D. RB: RB Report ID: [id number] Reading Location: [id number] Procedure Note Jac De Jesus MD - 11/27/2024 EXAM DESCRIPTION: XR KUB REASON FOR STUDY: r10.32 Pt states having abd pain at belly button that radiates to left side 3inches since 10/17/24 TECHNIQUE: Supine view COMPARISON: None available FINDINGS: Mild gaseous distention small and large bowel in a nonspecific fashion. Moderate to large stool burden. Unusual calcification. Moderate bony degenerative changes and moderate lumbar scoliosis convexityto the left. IMPRESSION: Nonspecific gas pattern with moderate to large stool burden. THIS IS AN ELECTRONICALLY VERIFIED FINAL REPORT 11/27/2024 8:18 AM - Electronically signed by Jac De Jesus M.D. RB: RB Report ID: [id number] Reading Location: [id number] us Monisha Contreras DO IMG XR PROCEDURES Edited R esult - Final * US Abdomen Limited (11/18/2024 11:00 AM CDT) Anatomical Region Laterality Modality Abdomen N/A Ultrasound 11/27/2024 8:17 AM CDT Narrative 11/27/2024 8:18 AM CDT EXAM DESCRIPTION: US ABDOMEN LIMITED REASON FOR STUDY: Left lower quadrant periumbilical pain for 1 month. TECHNIQUE: A Dynamic assessment was performed of the localized site designated by the patient by the buccaro, with selected grayscale and color Doppler images acquired and recorded in PACS. COMPARISON: None available FINDINGS: SKIN AND SUBCUTANEOUS TISSUES: No masses. No fluid collections. No edema. No foreign bodies. DEEP SOFT TISSUES/MUSCLES: No masses. No fluid collections. No edema. OTHER: No other significant finding. IMPRESSION: No soft tissue mass, fluid collection, or foreign body. THIS IS AN ELECTRONICALLY VERIFIED FINAL REPORT 11/27/2024 8:18 AM - Electronically signed by Jac De Jesus M.D. RB: CHERYL Report ID: [id number] Reading Location: [id number] Procedure Note Jac De Jesus MD - 11/27/2024 EXAM DESCRIPTION: US ABDOMEN LIMITED REASON FOR STUDY: Left lower quadrant periumbilical pain for 1 month. TECHNIQUE: A Dynamic assessment was performed of the localized site designated by the patient by the buccaro, with selected grayscale and color Doppler images acquired and recorded in PACS. COMPARISON: None available FINDINGS: SKIN AND SUBCUTANEOUS TISSUES: No masses. No fluidcollections. No edema. No foreign bodies. DEEP SOFT TISSUES/MUSCLES: No masses. No fluid collections. No edema. OTHER: No other significant finding. IMPRESSION: No soft tissue mass, fluid collection, or foreign body. THIS IS AN ELECTRONICALLY VERIFIED FINAL REPORT 11/27/2024 8:18 AM - Electronically signed by Jac De Jesus M.D. RB: RB Report ID: [id number] Reading Location: [id number] us Monisha Contreras DO [facility] [place] PROCEDURES Final Re sult * (ABNORMAL) Diagnostic Mammogram Bilateral W Jonathan (09/18/2024 10:06 AM CDT) Anatomical Region Laterality Modality Breast Bilateral Mammography 09/18/2024 10:1 2 AM CDT Impressions 09/18/2024 1:53 PM CDT 1. 0.5 cm grouped calcifications in the upper outer left breast are increased from prior studies and are at low suspicion for malignancy. Differential diagnosis includes fibroadenomatoid change. Recommend stereotactic guided biopsy. 2. Hypoechoic 0.5 cm right breast mass is at moderate suspicion for malignancy. Recommend ultrasound-guided biopsy. The method of initial detection of finding was 3D screening mammography (Sdbt). OVERALL FINAL ASSESSMENT: SUSPICIOUS. BI-RADS Category 4B: Moderate suspicion for malignancy. RECOMMENDATION: 1. Stereotactic biopsy of calcifications in the upper outer left breast. 2. Ultrasound-guided biopsy of a right breast mass at the 9 o'clock position, 1 cm from the nipple. Dr. Lauren discussed the above findings and recommendations with the patient. She has been scheduled for biopsy on 10/06/2024. This facility will contact the referring clinician's office for an order. Dictated by: Sudhakar Lauren MD The radiology attending physician has personally reviewed this study, and had reviewed and/or edited this written report and agrees with it. Electronically signed by: Nichelle Obrien M.D. Narrative 09/18/2024 1:53 PM CDT EXAMINATION: LEFT UNILATERAL DIGITAL DIAGNOSTIC MAMMOGRAM AND DIGITAL BREAST TOMOSYNTHESIS; RIGHT BREAST SONOGRAM HISTORY: 69-year-old woman with increasing calcification in the upper outer left breast from review of screening mammogram at outside institution. Additionally, she reports a single episode of spontaneous milky discharge from the right nipple. She is at increased risk of breast cancer due to family history. COMPARISON: Multiple prior screening mammograms, most recently 08/04/2024 TECHNIQUE: Full field digital mammographic views of the LEFT breast were performed, including computer aided detection (CAD) and digital breast tomosynthesis (DBT). Directed ultrasound evaluation of the RIGHT breast was performed. BREAST PARENCHYMAL COMPOSITION: The breasts are heterogeneously dense, which may obscure small masses. MAMMOGRAM FINDINGS: There are grouped calcifications in the upper outer left breast measuring 0.5 cm which have increased from prior mammograms. No suspicious mass or architectural distortion in the left breast. SONOGRAM FINDINGS: Targeted ultrasound was performed in the subareolar right breast given nipple discharge. There is a hypoechoic, anti-parallel mass at the right breast 9 o'clock position, 1 cm from the nipple that measures 0.4 x 0.5 x 0.4 cm. Valarie Brown COLLECTIONS TECHNICIAN IMG MAMMO PROCEDURES Fi nal Result from Last 3 Months or Most Recently Relevant to Health Maintenance Insurance [place] [address] [facility] [place] [place] [phone] [employer] MED[employer] GOLD Care Teams Benzene Washer Operator Relationship Specialty Start Date End Date Monisha Contreras DO PCP - General Family Medicine 10/23/19 Margaret Reaves MD [address] [place] [address] Referring Physician Obstetrics and Gynecology 08/06/24
--- OUTSIDE RECORDS SUMMARY | 2025-01-13 15:13 | XMS_ITS | Clinical Summary ---
Author Organization [facility] [employer] Address [address] [place] [address] Care Team Providers Care Magazine Writer Name Role Phone Angus Felix MD Unavailable [phone] Monisha Contreras DO Primary Care Provider Source Comments [facility] [employer],non-owned Affiliates and Associated Physician Practices is amultiple site organization consisting of ambulatory clinics and hospital sitesin [place], [place], [place] and [place]. This disclosure is being madepursuant to the Care Everywhere program and may not contain all information available regarding this patient. Last updated 17.[facility] [employer] Allergies Active Allergy Reactions Criticality Noted Date [...] on file Legal Sex Female 9:41 AM FAMILY THERAPIST Gender Identity Not on file Sexual Orientation Not on file Last Filed Vital Signs Vital Sign Reading Time Taken Comments Blood Pressure 124/62 02/23/2022 10:32 AM FAMILY THERAPIST Pulse 81 02/23/2022 10:32 AM FAMILY THERAPIST Temperature 36.9 C (98.4 F) 02/23/2022 10:32 AM FAMILY THERAPIST Respiratory Rate - - Oxygen Saturation 99% 02/23/2022 10:32 AM FAMILY THERAPIST Inhaled Oxygen Concentration - - Weight 72.8 kg (160 lb 6.4 oz) 02/23/2022 10:32 AM FAMILY THERAPIST Height 165.1 cm (5' 5) 02/23/2022 10:32 AM FAMILY THERAPIST Body Mass Index 26.69 02/23/2022 10:32 AM FAMILY THERAPIST Plan of Treatment Health Maintenance Due Date [...] of 2) 2003 SCREENING FOR DIABETES 10/19/2021 DEPRESSION SCREENING 04/09/2024 MEDICARE AWV CALENDAR YEAR 2024 COVID-19 VACCINE ( - season) 2024 06/15/2020, 05/12/2020 INFLUENZA VACCINE (#1) 2024 , 12/24/2019, 01/09/2019, Additional history exists Respiratory Syncytial [...] AN Subscriber ID:Not on file (Home) Address: [address] [place] [phone] Payer ID:Not on file Group ID:Not on file Type:Self Pay Address: [place] [address] Care Teams Magazine Writer Relationship Specialty Start Date End Date JudsonelsyMonisha DO [address] [place] [address] PCP - General 06/02/22 [place] [id number] [address] Orthopedic Surgery 06/05/17
--- OUTSIDE RECORDS SUMMARY | 2025-01-13 15:13 | XMS_ITS | Clinical Summary ---
Author Organization [facility] Address [address] [place] [address] Care Team Providers Care Lunchroom Aide Name Role Phone Monisha Contreras Primary Care Provider Allergies Active Allergy Reactions Criticality Noted Date [...] Never Smokeless Tobacco: Never Tobacco Cessation:Counseling Given: Yes Alcohol Use Standard Drinks/Week Comments Never 0 (1 standard drink = 0.6 oz pur e alcohol) PHQ-2 Answer Date Recorded Patient Health Questionnaire-2 Score 0 08/11/2024 Comments Unknown Sex and Gender Information Value Date Recorded Sex Assigned at Female 07/24/2023 11:35 AM CDT Legal 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 Gender Identity Female 07/24/2023 11:35 AM CDT Sexual Orientation Straight 07/24/2023 11 :35 AM CDT Last Filed Vital Signs Vital Sign Reading Time Taken Comments Blood Pressure 172/94 08/11/2024 10:05 AM CDT Pulse 64 08/11/2024 9:45 AM CDT Temperature 36.3 C (97.3 F) 02/11/2024 10:00 AM MOLD HOLDER Respiratory Rate - - Oxygen Saturation 100% 08/11/2024 9:45 AM CDT Inhaled Oxygen Concentration - - Weight 74.4 kg (164 lb) 08/11/2024 9:45 AM CDT Height 167.6 cm (5' 6) 02/11/2024 10:00 AM MOLD HOLDER Body Mass Index 26.47 02/11/2024 10:00 AM MOLD HOLDER Plan of Treatment Upcoming Encounters Date Type Department Care Team (Late st Contact Info) Description 02/12/2025 10:20 AM MOLD HOLDER Office Visit [facility] - [address] [place] [address] Rosmery Francisco MD [address] [place] [address] Health Maintenance Due Date Last Done Comments Colorectal Cancer Screening Colonoscopy (10 Years) 1953 Hepatitis C 1971 Mammogram Screening 1993 Annual Medicare Wellness Visit 2018 Dexa Scan (General) 2018 COVID-19 Vaccine ( season) 2024 01/18/2023, 12/15/2021, 02/21/2021, Additional history exists Influenza Adult (#1) 2025 12/31/2020, 12/24/2019, 01/09/2019, Additional history exists DTaP, Tdap and Td Vaccines (2 - Td or Tdap) 02/02/2033 02/02/2023 Zoster Vaccines Completed 12/08/2018, 06/11/2018 Pneumococcal Vaccine: 50+ Years Completed 02/19/2020, 06/11/2018 RSV Immunization or 60+ Years Completed 02/02/2023 PHQ-2 (Physician Samish) Completed 08/11/2024 Meningococcal B Vaccine Aged Out No l onger eligible based on patient's age to complete this topic Meningococcal Vaccine Aged Out No kristel hayder eligible based on patient's age to complete this topic RSV Immunizations Under 20 Months Aged Out No longer eligible based on patient's age to complete this topic Insurance [employer] MED[employer]ARE Care Teams Lunchroom Aide Relationship Specialty Start Date End Date Monisha Contreras DO [address] [place], [place] [address] PCP - General FAMILY PRACTICE 04/05/23
--- OUTSIDE RECORDS SUMMARY | 2025-01-13 15:13 | XMS_ITS | Encounter Summary ---
Author Organization [facility] Address [address] [place] [address] Phone Care Team Providers Care Police Chief Deputy Name Role Phone Ferddie Finn MD Primary Care Provider [phone] Pastor Pittman DO Unavailable [phone] Reason for Visit * Reason Comments Medication Refill Encounter Details Date Type Department Care Team (Late st Contact Info) Description 10/07/2021 Refill [facility] - Gastroenterology - [place] [address] [place] [address] Candelaria Olivier Heidi, PAC [address] [place] [address] Medication Refill Social History Tobacco Use Types [...] from primary care or she may use [id number] famotidine. * Telephone Encounter - Sybil Murcia [...] present documented in this encounter Care Teams Police Chief Deputy Relationship Specialty Start Date End Date Freddie Finn MD [address] [place] [address] PCP - General Family Medicine 07/11/16 Pastor Pittman DO [address] [place] [address] Gastroenterology 11/28/16 documented as of this encounter
--- OUTSIDE RECORDS SUMMARY | 2025-01-13 15:13 | XMS_ITS | Encounter Summary ---
Author Organization [facility] Address [address] [place] [address] Phone Care Team Providers Care Marketing Programs Specialist Name Role Phone Freddie Finn MD Primary Care Provider [phone] Pastor Pittman DO Unavailable [phone] Reason for Visit * Reason Comments Medication Refill Encounter Details Date Type Department Care Team (Late st Contact Info) Description 01/18/2021 Refill [facility] - Gastroenterology - [place] [address] [place] [address] Candelaria Olivier Heidi, PAC [address] [place] [address] Medication Refill Social History Tobacco Use Types [...] present documented in this encounter Care Teams Marketing Programs Specialist Relationship Specialty Start Date End Date Freddie Finn MD [address] [place] [address] PCP - General Family Medicine 07/11/16 Pastor Pittman DO [address] [place] [address] Gastroenterology 11/28/16 documented as of this encounter
--- OUTSIDE RECORDS SUMMARY | 2025-01-13 15:13 | XMS_ITS | Encounter Summary ---
Author Organization [facility] Address [address] [place] [address] Phone Care Team Providers Care Family Preservation Caseworker Name Role Phone Freddie Finn MD Primary Care Provider [phone] Pastor Pittman DO Unavailable [phone] Reason for Visit * Reason Comments Medication Refill Encounter Details Date Type Department Care Team (Late st Contact Info) Description 04/15/2021 Refill [facility] - Gastroenterology - [place] [address] [place] [address] Candelaria Olivier Heidi, PAC [address] [place] [address] Medication Refill Social History Tobacco Use Types [...] Sybil Murcia RN - 04/15/2021 8:49 AM AIRCRAFT MAINTENANCE SUPERVISOR Medication refilled and signed per [facility] chronic medication standing order for pediatric and adult patients. RAFT MAINTENANCE SUPERVISOR documented in this encounter Plan of Treatment Not on file documented as of this encounter Visit Diagnoses Diagnosis Gastroesophageal reflux disease, unspecified whether esophagitis present documented in this encounter Care Teams Family Preservation Caseworker Relationship Specialty Start Date End Date Freddie Finn MD [address] [facility] [place] [address] PCP - General Family Medicine 07/11/16 Pastor Pittman DO [address] [facility] [place] [address] Gastroenterology 11/28/16 documented as of this encounter
--- OUTSIDE RECORDS SUMMARY | 2025-01-13 15:13 | XMS_ITS | Encounter Summary ---
Author Organization [facility] Address [address] [facility] [place] [address] Care Team Providers Care Oracle Database Consultant Name Role Phone Angus Felix MD Unavailable [phone] Monisha Contreras DO Primary Care Provider [phone] Encounter Details Date Type Department Care Team (Late st Contact Info) Description 11/16/2020 Lab Requisition [facility] [address] [facility] [place] [id number] Augusto Moore MD [address] [place] [address] Social History Tobacco Use Types Packs/Day Years Used Date Smoking Tobacco: Never Assessed Comments Unknown Sex and Gender Information Value Date Recorded Sex Assigned at Not on file Legal Sex Female 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 Gender Identity Not on file Sexual Orientation Not on file documented as of this encounter Plan of Treatment Not on file documented as of this encounter Procedures Procedure Name Priority Date/Time Associated Diagnosis Comments DERMATOPATHOLOGY Routine 11/15/2020 3:33 AM CDT documented in this encounter Results * DERMATOPATHOLOGY (11/15/2020 3:33 AM CDT) Case Report Dermatopathology Report Case: [id number] Authorizing Provider: Augusto Moore MD Collected: 11/15/2020 03:33 AM Ordering Location: [facility] Received: 11/16/2020 05:46 AM Pathologist: Abigail Jang MD Specimen: Skin, left calf 4:34 PM CDT DERMATOPATHOLOGY LABORATORY Final Diagnosis Specimen A. SKIN, left calf: BENIGN VERRUCOUS KERATOSIS, INFLAMED (L82.1) (see microscopic description) 4:34 PM CDT DERMATOPATHOLOGY LABORATORY at 1634 CDT Clinical History Lentigo/SK vs BCCA. Path # [id number]. 4:34 PM CDT DERMATOPATHOLOGY LABORATORY Gross Description Specimen A: Received is one formalin filled container labeled with the patient's name and designated left calf. The specimen consists of a shave biopsy measuring [id number]. Jar 0. 4:34 PM CDT DERMATOPATHOLOGY LABORATORY [...] characteristic determined by the Dermatopathology Laboratory at [facility], directed by Dr. Zoë Hassan. These tests need not be, and therefore are not, approved by the [place] Food and Drug Administration. The tests are used for clinical purposes. Billing Codes Specimen Charges Stain Charges 73326 1 4:34 PM CDT DERMATOPATHOLOGY LABORATORY Embedded Images 4:34 PM CDT DERMATOPATHOLOGY LABORATORY Pathology/Cytolo gy TISSUE SPECIMEN FROM SKIN / Unknown 11/15/2020 3:33 AM CDT 11/16/2020 5:46 AM CDT Augusto Moore MD LAB - PATHOLOGY/CYTOLOGY ORDER ROBIN Final Result DERMATOPATHOLOGY LABORATORY [facility] - Department of Dermatology [facility] Medicine [address] [place] [address], [address] [phone] documented in this encounter Visit Diagnoses Not on filedocumented in this encounter Care Teams Oracle Database Consultant Relationship Specialty Start Date End Date Monisha Contreras DO [address] [address] PCP - General 06/02/22 [place] [id number] [address] Orthopedic Surgery 06/05/17 documented as of this encounter
--- OUTSIDE RECORDS SUMMARY | 2025-01-13 15:13 | XMS_ITS | Clinical Summary ---
Author Organization [facility] Address [address] [place] [facility], [address] [address] Phone Care Team Providers Care Steam Presser Name Role Phone Freddie Finn MD Primary Care Provider [phone] Pastor Pittman DO Unavailable [phone] Allergies Active Allergy Reactions Criticality Noted Date [...] 8:47 AM CDT Height 167.6 cm (5' 6) 08/03/2020 8:47 AM CDT Body Mass Index 25.34 08/03/2020 8:47 AM CDT Plan of Treatment Health Maintenance Due Date Last Done Comments Hepatitis C Virus (HCV) Screening 1955 TdaP Immunization 1955 Cologuard 1998 Immunochemical Fecal Occult Blood 1998 Medicare Initial AWV [id number] 04/09/2019 Influenza Immunization (#1) 12/08/202412/09, 12/24/2019, 12/24/2019, Additional history exists SARS-COV-2 Immunization ( season) 2024 02/21/2021, 06/15/2020, 05/12/2020 Colonoscopy 11/23/2026 11/23/2016, 08/17/2006 Colorectal Cancer Screening 11/23/2026 Respiratory Syncytial Virus (RSV) Immunization (Adult) (1 - 1-dose 75+ series) 2028 Zoster Immunization Completed 12/08/2018, 9 Pneumococcal Immunization (50+ years) Completed 02/19/2020, 06/11/2018 Pneumococcal Immunization Combined Discontinued 02/19/2020, 06/11/2018 Hepatitis B Immunization Aged Out No longer eligible based on patient's age to complete this topic Human Papillomavirus (HPV) Immunization Aged Out No longer eligible based [...] Recently Relevant to Health Maintenance Results * COLONOSCOPY (11/23/2016) Freddie Finn MD PROCEDURE/MINOR SURGICAL ORDDavid [place] Final Result from Last 3 Months or Most Recently Relevant to Health Maintenance Insurance MEDICARE C [employer] Care Teams Steam Presser Relationship Specialty Start Date End Date Freddie Finn MD [address] [facility] [place] [address] PCP - General Family Medicine 07/11/16 Pastor Pittman DO [address] [facility] [place] [address] Gastroenterology 11/28/16
== END 2025-01-13 14:17 | disposition home or self-care (01) ==
PROVIDERS: PCP Family Medicine; Visit Provider Nurse Practitioner
DX: K59.89 Other specified functional intestinal disorders (principal)
CPT/HCPCS: 74018